=== PATIENT | female | born 1950 | race African-American/Black ===

== ENCOUNTER 2017-07-05 19:25 | Emergency (ER) | payer MEDICARE ==
[2017-07-05 20:00] LABS: ADD MAN DIFF? NO
[2017-07-05 20:04] LABS: BASO % 1 % (0-3); EOS # 0.1 x10^3/uL (0.0-0.7); EOS % 3 % (0-3); HEMATOCRIT 35.7 % (36.0-47.0); LYMPH # 1.7 x10^3/uL (1.0-4.8); LYMPH % 39 % (24-48); MEAN CORPUSCULAR HEMOGLOBIN 30 pg (25-35); MEAN CORPUSCULAR HGB CONC 34 g/dL (31-37); MEAN CORPUSCULAR VOLUME 90 fL (79-100); MONO # 0.4 x10^3/uL (0.0-1.1); MONO % 10 % (0-9); NEUT % 47 % (31-73); PLATELET COUNT 190 x10^3/uL (140-400); RED BLOOD COUNT 3.96 x10^6/uL (3.50-5.40); RED CELL DISTRIBUTION WIDTH 14.6 % (11.5-14.5); WHITE BLOOD COUNT 4.3 x10^3/uL (4.0-11.0)
[2017-07-05 20:13] LABS: BILIRUBIN,URINE NEGATIVE (NEG); CLARITY,URINE CLOUDY; COLOR,URINE YELLOW; GLUCOSE,URINE NEGATIVE (NEG); NITRITE,URINE NEGATIVE (NEG); PROTEIN,URINE NEGATIVE (NEG-TRACE)
[2017-07-05 20:16] LABS: ANION GAP 9 (6-14); BLOOD UREA NITROGEN 16 mg/dL (7-20); CALCIUM 8.8 mg/dL (8.5-10.1); CARBON DIOXIDE 32 mmol/L (21-32); CHLORIDE 106 mmol/L (98-107); CREATININE 1.1 mg/dL (0.6-1.0); GFR 59.8; GLUCOSE 92 mg/dL (70-99); POTASSIUM 3.7 mmol/L (3.5-5.1); SODIUM 147 mmol/L (136-145)
[2017-07-05 20:17] LABS: BACTERIA,URINE 0 /HPF (0-FEW); SQUAMOUS EPITHELIAL CELL,UR OCC /LPF; WBC,URINE 0 /HPF (0-4)
[2017-07-05 20:22] LABS: ALBUMIN 3.3 g/dL (3.4-5.0); ALK PHOS 92 U/L (46-116); ALT (SGPT) 19 U/L (14-59); AST (SGOT) 16 U/L (15-37); DIRECT BILIRUBIN 0.1 mg/dL (0.0-0.2); LIPASE 119 U/L (73-393); TOTAL BILIRUBIN 0.5 mg/dL (0.2-1.0); TOTAL PROTEIN 7.1 g/dL (6.4-8.2)
[2017-07-05 20:24] LABS: TROPONINI < 0.017 ng/mL (0.000-0.055)
[2017-07-05 20:27] LABS: NT-PRO BNP 782 pg/mL (0-124)
== END 2017-07-05 21:51 | disposition home or self-care (01) ==
LOC: ER 19:25
DX: R06.02 Shortness of breath (principal); R60.0 Localized edema; E87.0 Hyperosmolality and hypernatremia; G89.29 Other chronic pain; M06.9 Rheumatoid arthritis, unspecified; M10.9 Gout, unspecified; Z95.0 Presence of cardiac pacemaker
CPT/HCPCS: 36415; 71045; 80048; 80076; 81001; 83605; 83690; 83880; 84484; 85025; 93005; 93970; 99285-25

== ENCOUNTER 2017-08-29 09:39 | Emergency (ER) | payer MEDICARE ==
[2017-08-29 12:01] LABS: ADD MAN DIFF? NO
[2017-08-29 12:05] LABS: BASO % 1 % (0-3); EOS # 0.1 x10^3/uL (0.0-0.7); EOS % 4 % (0-3); HEMATOCRIT 35.9 % (36.0-47.0); HEMOGLOBIN 12.1 g/dL (12.0-15.5); LYMPH # 1.5 x10^3/uL (1.0-4.8); LYMPH % 45 % (24-48); MEAN CORPUSCULAR HEMOGLOBIN 31 pg (25-35); MEAN CORPUSCULAR HGB CONC 34 g/dL (31-37); MEAN CORPUSCULAR VOLUME 91 fL (79-100); MONO # 0.4 x10^3/uL (0.0-1.1); MONO % 11 % (0-9); NEUT # 1.3 x10^3uL (1.8-7.7); NEUT % 41 % (31-73); PLATELET COUNT 209 x10^3/uL (140-400); RED BLOOD COUNT 3.96 x10^6/uL (3.50-5.40); RED CELL DISTRIBUTION WIDTH 15.2 % (11.5-14.5); WHITE BLOOD COUNT 3.3 x10^3/uL (4.0-11.0)
[2017-08-29] MEDS: GABAPENTIN 300 MG CAPSULE. PO (12:09)
[2017-08-29] MEDS: ASPIRIN 325 MG TABLET PO (12:09)
[2017-08-29 12:16] LABS: ANION GAP 1 (6-14); BLOOD UREA NITROGEN 15 mg/dL (7-20); BUN/CREATININE RATIO 15 (6-20); CALCIUM 9.5 mg/dL (8.5-10.1); CARBON DIOXIDE 34 mmol/L (21-32); CHLORIDE 106 mmol/L (98-107); GFR 66.7; GLUCOSE 99 mg/dL (70-99); POTASSIUM 3.4 mmol/L (3.5-5.1); SODIUM 141 mmol/L (136-145)
[2017-08-29 12:22] LABS: ALBUMIN 3.5 g/dL (3.4-5.0); ALBUMIN/GLOBULIN RATIO 0.9 (1.0-1.7); ALK PHOS 78 U/L (46-116); ALT (SGPT) 19 U/L (14-59); AST (SGOT) 14 U/L (15-37); MAGNESIUM 2.1 mg/dL (1.8-2.4); TOTAL BILIRUBIN 1.2 mg/dL (0.2-1.0); TOTAL PROTEIN 7.2 g/dL (6.4-8.2)
[2017-08-29 12:28] LABS: TROPONINI < 0.017 ng/mL (0.000-0.055)
[2017-08-29 12:31] LABS: THYROID STIM HORMONE (TSH) 1.841 uIU/mL (0.358-3.74)
[2017-08-29 12:37] LABS: NT-PRO BNP 694 pg/mL (0-124)
[2017-08-29 12:37] LABS: CKMB MASS < 0.5 ng/mL (0.0-3.6); CREATINE KINASE 90 U/L (26-192)
[2017-08-29 12:56] LABS: BILIRUBIN,URINE NEGATIVE (NEG); CLARITY,URINE CLEAR; COLOR,URINE YELLOW; GLUCOSE,URINE NEGATIVE (NEG); NITRITE,URINE NEGATIVE (NEG); PROTEIN,URINE NEGATIVE (NEG-TRACE); UROBILINOGEN,URINE 0.2 mg/dL (0.2 mg/dL)
[2017-08-29 13:03] LABS: BARBITURATES NEG (NEG); BENZODIAZEPINES NEG (NEG); CANNABINOIDS NEG (NEG); COCAINE NEG (NEG); METHADONE NEG (NEG); OPIATES NEG (NEG); PHENCYCLIDINE NEG (NEG)
[2017-08-29 13:05] LABS: AMPHETAMINE/METHAMPHETAMINE NEG (NEG); ETHANOL, URINE NEG (NEG)
[2017-08-29 13:20] LABS: BACTERIA,URINE FEW /HPF (0-FEW); RBC,URINE 0 /HPF (0-2); SQUAMOUS EPITHELIAL CELL,UR OCC /LPF; WBC,URINE 0 /HPF (0-4)
== END 2017-08-29 14:35 | disposition home or self-care (01) ==
LOC: ER 09:39
DX: R20.2 Paresthesia of skin (principal); M19.90 Unspecified osteoarthritis, unspecified site; G62.9 Polyneuropathy, unspecified; G89.29 Other chronic pain; M10.9 Gout, unspecified; Z95.0 Presence of cardiac pacemaker; Z98.890 Other specified postprocedural states
CPT/HCPCS: 36415; 70450; 71045; 73130; 80053; 80307; 81001; 82553; 83735; 83880; 84443; 84484; 85025; 85610; 93005; 99285-25

== ENCOUNTER 2017-09-06 18:26 | Emergency (ER) | payer MEDICARE ==
[2017-09-06 19:16] LABS: ADD MAN DIFF? NO
[2017-09-06 19:18] LABS: BASO % 1 % (0-3); EOS # 0.1 x10^3/uL (0.0-0.7); EOS % 2 % (0-3); HEMATOCRIT 37.5 % (36.0-47.0); HEMOGLOBIN 12.9 g/dL (12.0-15.5); LYMPH # 1.7 x10^3/uL (1.0-4.8); LYMPH % 44 % (24-48); MEAN CORPUSCULAR HEMOGLOBIN 31 pg (25-35); MEAN CORPUSCULAR HGB CONC 34 g/dL (31-37); MEAN CORPUSCULAR VOLUME 91 fL (79-100); MONO # 0.3 x10^3/uL (0.0-1.1); MONO % 8 % (0-9); NEUT # 1.7 x10^3uL (1.8-7.7); NEUT % 45 % (31-73); PLATELET COUNT 218 x10^3/uL (140-400); RED BLOOD COUNT 4.13 x10^6/uL (3.50-5.40); RED CELL DISTRIBUTION WIDTH 15.2 % (11.5-14.5); WHITE BLOOD COUNT 3.9 x10^3/uL (4.0-11.0)
[2017-09-06 19:29] LABS: ANION GAP 8 (6-14); BLOOD UREA NITROGEN 14 mg/dL (7-20); BUN/CREATININE RATIO 16 (6-20); CALCIUM 9.2 mg/dL (8.5-10.1); CARBON DIOXIDE 29 mmol/L (21-32); CHLORIDE 106 mmol/L (98-107); CREATININE 0.9 mg/dL (0.6-1.0); GFR 75.3; GLUCOSE 105 mg/dL (70-99); POTASSIUM 3.2 mmol/L (3.5-5.1); SODIUM 143 mmol/L (136-145)
[2017-09-06 19:35] LABS: ALBUMIN 3.6 g/dL (3.4-5.0); ALK PHOS 76 U/L (46-116); ALT (SGPT) 18 U/L (14-59); AST (SGOT) 12 U/L (15-37); TOTAL PROTEIN 7.3 g/dL (6.4-8.2)
[2017-09-06 19:37] LABS: TROPONINI < 0.017 ng/mL (0.000-0.055)
[2017-09-06 19:40] LABS: NT-PRO BNP 1111 pg/mL (0-124)
[2017-09-06 20:03] LABS: MAGNESIUM 1.9 mg/dL (1.8-2.4)
[2017-09-06] MEDS: POTASSIUM CHLORIDE 20 MEQ TABLET.ER. PO (20:15)
== END 2017-09-06 21:00 | disposition home or self-care (01) ==
LOC: ER 18:26
DX: R00.2 Palpitations (principal); R07.89 Other chest pain; G89.29 Other chronic pain; R00.0 Tachycardia, unspecified; M10.9 Gout, unspecified; M06.9 Rheumatoid arthritis, unspecified; Z95.810 Presence of automatic (implantable) cardiac defibrillator; Z95.0 Presence of cardiac pacemaker
CPT/HCPCS: 36415; 71045; 80053; 83735; 83880; 84484; 85025; 93005; 99285-25

== ENCOUNTER 2018-06-21 13:14 | Emergency (ER) | payer MEDICARE ==
[~2018-06-21] VITALS: Ht 170.2 cm; Wt 98.9 kg
[~2018-06-21 13:14] MED LIST: ALPR0.5T PO; AMIO200T4 PO; ASPI81TA59 PO; CARV6.2511 PO; CHOL400C PO; CLIN150C14 PO; DICL100G18 TP; FLUT16SP2 NS; FOLI1TAB16 PO; FURO20TA3 PO; GABA300C18 PO; LACT1CAP8 PO; LISI2.5T PO; OMEG1CAP27 PO; POTA25TA4 PO; RANI150C PO; RANI150T2 PO; SENN1TAB62 PO; SIMV10TA3 PO
[2018-06-21 13:29] VITALS: BP 124/67
[2018-06-21] MEDS ORDERED: AMOX1TAB61 PO (14:06)
[2018-06-21] MEDS ORDERED: PRED50TA PO (14:06)
[2018-06-21] MEDS ORDERED: FLUT9.9S NS (14:06)
--- NOTE | 2018-06-21 14:07 | PHYS DOC ---
Past Medical History Past Medical History: Arthritis, Arrhythmia, Other Additional Past Medical Histor: GOUT, CHRONIC PAIN, RHEUMATOID ARTHRITIS ([employer]) Past Surgical History: Pacemaker, Other Additional Past Surgical Histo: defibrillator, hernia repair (HENRY TUTTLE APRN) Alcohol Use: None Drug Use: None (HENRY TUTTLE APRN) Adult General Chief Complaint Chief Complaint: MULTIPLE COMPLAINTS HPI HPI Patient is a 67 year old female who presents with complaints. The patient has had congestion for greater than 2 weeks. She states that she is now having facial pain and thick drainage. She states that it hits her throat at night making her cough. She also has inflammation to her right hand and right knee. The patient is positive for rheumatoid arthritis. She has been having symptoms of dry mouth as well as dry eyes. (HENRY TUTTLE APRN) Review of Systems Review of Systems Constitutional: Denies fever or chills [] Eyes: Denies change in visual acuity, redness, or eye pain [] HENT: See history of present illness Respiratory: Denies cough or shortness of breath [] Cardiovascular: No additional information not addressed in HPI [] GI: Denies abdominal pain, nausea, vomiting, bloody stools or diarrhea [] : Denies dysuria or hematuria [] Musculoskeletal: See history of present illness Integument: Denies rash or skin lesions [] Neurologic: Denies headache, focal weakness or sensory changes [] Endocrine: Denies polyuria or polydipsia [] All other systems were reviewed and found to be within normal limits, except as documented in this note. (HENRY TUTTLE APRN) Allergies Allergies Allergies Coded Allergies Type Severity Reaction Last Updated Verified No Known Drug Allergies 07/06/14 No (DMITRI KYLE MD) Physical Exam Physical Exam Constitutional: Well developed, well nourished, no acute distress, non-toxic appearance. [] HENT: Normocephalic, atraumatic, bilateral external ears normal, patient has sinus drainage noted to the back of her throat, the patient has maxillary tenderness with palpation Eyes: PERRLA, EOMI, conjunctiva normal, no discharge. [] Neck: Normal range of motion, no tenderness, supple, no stridor. [] Cardiovascular:Heart rate regular rhythm, no murmur [] Lungs & Thorax: Bilateral breath sounds clear to auscultation [] Abdomen: Bowel sounds normal, soft, no tenderness, no masses, no pulsatile masses. [] Skin: Warm, dry, no erythema, no rash. [] Back: No tenderness, no CVA tenderness. [] Extremities: tenderness and edema to right knee and right third digit with some inflammation noted, no cyanosis, no clubbing, ROM intact Neurologic: Alert and oriented X 3, normal motor function, normal sensory function, no focal deficits noted. [] Psychologic: Affect normal, judgement normal, mood normal. [] (HENRY TUTTLE APRN) Current Patient Data Vital Signs Vital Signs Date Time Temp Pulse Resp B/P (MAP) Pulse Ox O2 Delivery O2 Flow Rate FiO2 06/21/18 13:29 97.5 77 16 124/67 (86) 100 Room Air 97.5 (DMITRI KYLE MD) EKG EKG [] (HENRY TUTTLE APRN) Radiology/Procedures Radiology/Procedures [] (HENRY TUTTLE APRN) Course & Med Decision Making Course & Med Decision Making Pertinent Labs and Imaging studies reviewed. (See chart for details) The patient is to take the antibiotics as directed and use the Flonase for symptom relief. I did res counselor her to sip on water throughout the day as well as use lozenges to keep her mouth moist. She can also use pgao-ybb-gdlhjis drops such as Restasis for dry eyes. I strongly encouraged her to see a pbx repairer for evaluation of Sjogren syndrome. (HENRY TUTTLE APRN) Course & Med Decision Making Staff Physician Addendum: I was working in the ER during the course of this patient's visit. I was available for consultation as needed, but I was not directly involved in the care of this patient. (DMITRI KYLE MD) Dragon Disclaimer Dragon Disclaimer This electronic medical record was generated, in whole or in part, using a voice recognition dictation system. (HENRY TUTTLE APRN) Departure Departure Impression: Primary Impression: Sinusitis Disposition: 01 HOME, SELF-CARE Condition: STABLE Referrals: UNKNOWN PCP NAME (PCP) Patient Instructions: Sinusitis Additional Instructions: Take medications as directed. Follow-up with Dr. Lombardi in 4 days if not improving or return to the emergency department if worsening. Scripts Prednisone (PREDNISONE) 50 Mg Tablet 1 TAB PO DAILY for inflammation, #5 TAB Prov: HENRY TUTTLE APRN 06/21/18 Fluticasone Propionate (Flonase Allergy Relief) 9.9 Ml [place].susp 2 SPRAYS NS DAILY for sinusitis, #1 BOTTLE Prov: HENRY TUTTLE APRN 06/21/18 Amoxicillin/Potassium Clav (AUGMENTIN 875-125 TABLET) 1 Each Tablet 1 TAB PO BID for sinusitis, #20 TAB Prov: HENRY TUTTLE APRN 06/21/18 HENRY TUTTLE APRN Jun 21, 2018 14:07 DMITRI KYLE MD Jun 22, 2018 10:22
== END 2018-06-21 14:20 | disposition home or self-care (01) ==
LOC: ER 13:14
DX: J32.9 Chronic sinusitis, unspecified (principal); G89.29 Other chronic pain; M10.9 Gout, unspecified; Z95.810 Presence of automatic (implantable) cardiac defibrillator
CPT/HCPCS: 99283

== ENCOUNTER 2018-07-22 07:24 | Emergency (ER) | payer MEDICARE ==
[~2018-07-22] VITALS: Ht 170.2 cm; Wt 98.9 kg
[~2018-07-22 07:24] MED LIST changes: +AMOX1TAB61 PO; +FLUT9.9S NS; +PRED50TA PO
[2018-07-22 07:57] LABS: BASO % 1 % (0-3); EOS # 0.1 x10^3/uL (0.0-0.7); EOS % 2 % (0-3); HEMATOCRIT 37.8 % (36.0-47.0); HEMOGLOBIN 12.3 g/dL (12.0-15.5); LYMPH # 1.4 x10^3/uL (1.0-4.8); LYMPH % 41 % (24-48); MEAN CORPUSCULAR HEMOGLOBIN 30 pg (25-35); MEAN CORPUSCULAR HGB CONC 33 g/dL (31-37); MEAN CORPUSCULAR VOLUME 93 fL (79-100); MONO # 0.3 x10^3/uL (0.0-1.1); MONO % 9 % (0-9); NEUT # 1.5 x10^3uL (1.8-7.7); NEUT % 46 % (31-73); PLATELET COUNT 199 x10^3/uL (140-400); RED BLOOD COUNT 4.08 x10^6/uL (3.50-5.40); RED CELL DISTRIBUTION WIDTH 15.6 % (11.5-14.5); WHITE BLOOD COUNT 3.3 x10^3/uL (4.0-11.0)
[2018-07-22 08:09] LABS: CALCIUM 8.5 mg/dL (8.5-10.1); CREATININE 0.9 mg/dL (0.6-1.0); GFR 75.1; POTASSIUM 3.4 mmol/L (3.5-5.1)
[2018-07-22 08:15] LABS: ALBUMIN 3.2 g/dL (3.4-5.0); ALBUMIN/GLOBULIN RATIO 0.8 (1.0-1.7); TOTAL BILIRUBIN 0.6 mg/dL (0.2-1.0); TOTAL PROTEIN 7.1 g/dL (6.4-8.2)
--- NOTE | 2018-07-22 08:20 | RAD ---
CHEST AP ONLY Clinical Indication: CHEST PAIN AND WHEEZING X TODAY Comparison: AP chest September 06, 2017. Findings: Stable left chest dual-chamber ICD. Atherosclerotic thoracic aorta. Mild cardiomegaly is unchanged. No obvious pulmonary vascular congestion. Lungs are clear. There is no pneumothorax. No pleural effusion is appreciated. No acute bone abnormality. IMPRESSION: 1. No acute pulmonary process. 2. Stable cardiomegaly. Electronically signed by: Marcelo Wilson MD (07/22/2018 8:17 AM) [id number]
--- NOTE | 2018-07-22 09:13 | EKG ---
[facility] [address] [place] [address] Test Date: 2018-07-22 Test Time: 07:39:17 Pat Name: CY HENDERSON Department: Room: Gender: F Engraver Picture: : 1950 Requested By: SANKET YEN Order Number: [id number] Reading MD: Toni Levy MD Measurements Intervals [place] Rate: 75 P: 48 NH: 212 QRS: -40 QRSD: 122 T: 53 QT: 448 QTc: 503 Interpretive Statements SINUS RHYTHM LAD CONSIDER PRIOR INFERIOR INFARCT IVCD POOR R-WAVE PROGRESSION Electronically Signed On 07-22-2018 11:12:02 CDT by Toni Levy MD
[2018-07-22 09:24] LABS: BILIRUBIN,URINE NEGATIVE (NEG); CLARITY,URINE CLEAR; COLOR,URINE YELLOW; NITRITE,URINE NEGATIVE (NEG); PH,URINE 6.5; PROTEIN,URINE NEGATIVE (NEG-TRACE); UROBILINOGEN,URINE 0.2 mg/dL (0.2 mg/dL)
[2018-07-22 09:29] LABS: BACTERIA,URINE FEW /HPF (0-FEW); SQUAMOUS EPITHELIAL CELL,UR MANY /LPF
--- NOTE | 2018-07-22 09:47 | PHYS DOC ---
Past Medical History Past Medical History: Arthritis, Arrhythmia, Other Additional Past Medical Histor: GOUT, CHRONIC PAIN, RHEUMATOID ARTHRITIS Past Surgical History: Pacemaker, Other Additional Past Surgical Histo: defibrillator, hernia repair Alcohol Use: None Drug Use: None Adult General Chief Complaint Chief Complaint: CHEST PAIN [facility] HPI [53-year-old female with a history of nonischemic cardiomyopathy with an AICD presents with some pain in her back. She also has some pain in her right shoulder. 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 She seen her primary care physician for this and been given Percocet. She states the pain seemed a little worse today. She denies any fever chills or sweats. She has not had any significant shortness of breath or dyspnea on exertion. She's not had any unilateral leg swelling. She states the pain it's in her back does occasionally radiate to her shoulders. She also states that this pain is much worse with any movement] Review of Systems Review of Systems Constitutional: Denies fever or chills [] Eyes: Denies change in visual acuity, redness, or eye pain [] HENT: Denies nasal congestion or sore throat [] Respiratory: Denies cough or shortness of breath [] Cardiovascular: No additional information not addressed in HPI [] GI: Denies abdominal pain, nausea, vomiting, bloody stools or diarrhea [] : Denies dysuria or hematuria [] Musculoskeletal: Denies back pain or joint pain [] Integument: Denies rash or skin lesions [] Neurologic: Denies headache, focal weakness or sensory changes [] Endocrine: Denies polyuria or polydipsia [] All other systems were reviewed and found to be within normal limits, except as documented in this note. Allergies Allergies Allergies Coded Allergies Type Severity Reaction Last Updated Verified No Known Drug Allergies 07/06/14 No Physical Exam Physical Exam Constitutional: Well developed, well nourished, no acute distress, non-toxic appearance. [] HENT: Normocephalic, atraumatic, bilateral external ears normal, oropharynx moist, no oral exudates, nose normal. [] Eyes: PERRLA, EOMI, conjunctiva normal, no discharge. [] Neck: Normal range of motion, no tenderness, supple, no stridor. [] Cardiovascular:Heart rate regular rhythm, no murmur [] Lungs & Thorax: Bilateral breath sounds clear to auscultation [] Abdomen: Bowel sounds normal, soft, no tenderness, no masses, no pulsatile masses. [] Skin: Warm, dry, no erythema, no rash. [] Back: No tenderness, no CVA tenderness. [] Extremities: No tenderness, no cyanosis, no clubbing, ROM intact, no edema. [] Neurologic: Alert and oriented X 3, normal motor function, normal sensory function, no focal deficits noted. [] Psychologic: Affect normal, judgement normal, mood normal. [] Current Patient Data Vital Signs Vital Signs Date Time Temp Pulse Resp B/P (MAP) Pulse Ox O2 Delivery O2 Flow Rate FiO2 07/22/18 07:35 98.2 73 20 110/65 (80) 96 Room Air 98.2 Lab Values Laboratory Tests Test 07/22/18 07:45 07/22/18 09:11 White Blood Count 3.3 x10^3/uL (4.0-11.0) L Red Blood Count 4.08 x10^6/uL (3.50-5.40) Hemoglobin 12.3 g/dL (12.0-15.5) Hematocrit 37.8 % (36.0-47.0) Mean Corpuscular Volume 93 fL (79-100) Mean Corpuscular Hemoglobin 30 pg (25-35) Mean Corpuscular Hemoglobin Concent 33 g/dL (31-37) Red Cell Distribution Width 15.6 % (11.5-14.5) H Platelet Count 199 x10^3/uL (140-400) Neutrophils (%) (Auto) 46 % (31-73) Lymphocytes (%) (Auto) 41 % (24-48) Monocytes (%) (Auto) 9 % (0-9) Eosinophils (%) (Auto) 2 % (0-3) Basophils (%) (Auto) 1 % (0-3) Neutrophils # (Auto) 1.5 x10^3uL (1.8-7.7) L Lymphocytes # (Auto) 1.4 x10^3/uL (1.0-4.8) Monocytes # (Auto) 0.3 x10^3/uL (0.0-1.1) Eosinophils # (Auto) 0.1 x10^3/uL (0.0-0.7) Basophils # (Auto) 0.0 x10^3/uL (0.0-0.2) Sodium Level 144 mmol/L (136-145) Potassium Level 3.4 mmol/L (3.5-5.1) L Chloride Level 104 mmol/L (98-107) Carbon Dioxide Level 33 mmol/L (21-32) H Anion Gap 7 (6-14) Blood Urea Nitrogen 15 mg/dL (7-20) Creatinine 0.9 mg/dL (0.6-1.0) Estimated GFR (Cockcroft-Gault) 75.1 BUN/Creatinine Ratio 17 (6-20) Glucose Level 96 mg/dL (70-99) Calcium Level 8.5 mg/dL (8.5-10.1) Total Bilirubin 0.6 mg/dL (0.2-1.0) Aspartate Amino Transferase (AST) 15 U/L (15-37) Alanine Aminotransferase (ALT) 22 U/L (14-59) Alkaline Phosphatase 78 U/L (46-116) Troponin I Quantitative < 0.017 ng/mL (0.000-0.055) FL-Ioh-R-Type Natriuretic Peptide 721 pg/mL (0-124) H Total Protein 7.1 g/dL (6.4-8.2) Albumin 3.2 g/dL (3.4-5.0) L Albumin/Globulin Ratio 0.8 (1.0-1.7) L Urine Collection Type Unknown Urine Color Yellow Urine Clarity Clear Urine pH 6.5 Urine Specific [place] 1.020 Urine Protein Negative mg/dL (NEG-TRACE) Urine Glucose (UA) Negative mg/dL (NEG) Urine Ketones (Stick) Negative mg/dL (NEG) Urine Blood Small (NEG) Urine Nitrite Negative (NEG) Urine Bilirubin Negative (NEG) Urine Urobilinogen Dipstick 0.2 mg/dL (0.2 mg/dL) Urine Leukocyte Esterase Negative (NEG) Urine RBC 3-5 /HPF (0-2) Urine WBC 1-4 /HPF (0-4) Urine Squamous Epithelial Cells Many /LPF Urine Bacteria Few /HPF (0-FEW) Laboratory Tests 07/22/18 07:45 Laboratory Tests 07/22/18 07:45 EKG EKG [EKG: Sinus rhythm left bundle from previous rate 75] Radiology/Procedures Radiology/Procedures [] Impressions: REASON: chest pain PROCEDURE: CHEST AP ONLY CHEST AP ONLY Clinical Indication: CHEST PAIN AND WHEEZING X TODAY Comparison: AP chest September 06, 2017. Findings: Stable left chest dual-chamber ICD. Atherosclerotic thoracic aorta. Mild cardiomegaly is unchanged. No obvious pulmonary vascular congestion. Lungs are clear. There is no pneumothorax. No pleural effusion is appreciated. No acute bone abnormality. IMPRESSION: 1. No acute pulmonary process. 2. Stable cardiomegaly. Course & Med Decision Making Course & Med Decision Making Pertinent Labs and Imaging studies reviewed. (See chart for details) [ED course: Evaluation reveals a 67-year-old female who presents with some atypical chest discomfort. The pain originated in her back radiating to her right shoulder. Was exacerbated by movement not so much by deep breath. Her initial cardiac workup was unrevealing. I offered the patient admission for observation and rule out in echocardiogram and stress test however the patient was adamant that she did not want to stay. She states she understands that she is at risk to have a heart attack and even if she doesn't stay. She states she will follow with her primary care physician this week and get all of her testing done as an outpatient. Patient also adamantly refused any pain medicine while in the department stating she has Percocet at home that she'll take if she needs it.] Dragon Disclaimer Dragon Disclaimer This electronic medical record was generated, in whole or in part, using a voice recognition dictation system. Departure Departure Impression: Primary Impression: Chest wall pain Disposition: HOME, SELF-CARE Condition: STABLE Referrals: Brendan PORTER MD (PCP) Patient Instructions: Back Pain, Adult, Chest Pain (Nonspecific), Chest Wall Pain Additional Instructions: Follow with Dr. Porter in the next 24 hours for recheck. Return immediately to the emergency department with any new or concerning symptoms SANKET YEN DO Jul 22, 2018 09:47
[2018-07-22 10:00] VITALS: BP 119/65
== END 2018-07-22 10:05 | disposition home or self-care (01) ==
LOC: ER 07:24
DX: R07.89 Other chest pain (principal); M25.511 Pain in right shoulder; M54.89 Other dorsalgia; R06.2 Wheezing; G89.29 Other chronic pain; M10.9 Gout, unspecified; Z98.890 Other specified postprocedural states; Z95.810 Presence of automatic (implantable) cardiac defibrillator
CPT/HCPCS: 36415; 71045; 80053; 81001; 83880; 84484; 85025; 93005; 99284-25

== ENCOUNTER 2019-06-09 12:38 | Emergency (ER) | payer MEDICARE ==
[~2019-06-09] VITALS: Ht 170.2 cm; Wt 97.2 kg
[~2019-06-09 12:38] MED LIST changes: +ALBU2.5V8 INH; +DULO60CA6 PO; +FURO40TA4 PO; +OMEG1CAP6 PO; +OXYC1TAB22 PO; +POTA20TA4 PO; +SACU1TAB7 PO; +SIMV10TA15 PO; -SIMV10TA3 PO
[2019-06-09 12:51] VITALS: BP 119/73
[2019-06-09] MEDS: LIDOCAINE 2% VISCOUS 15 ML SOLUTION. SWSW STA (12:52)
--- NOTE | 2019-06-09 12:55 | PHYS DOC ---
Past Medical History Past Medical History: Arthritis, Arrhythmia, Other Additional Past Medical Histor: GOUT, CHRONIC PAIN, RHEUMATOID ARTHRITIS Past Surgical History: Pacemaker, Other Additional Past Surgical Histo: defibrillator, hernia repair Smoking Status: Never Smoker Alcohol Use: None Drug Use: None Adult General Chief Complaint Chief Complaint: FOREIGNBODY EAR HPI HPI Patient is a 68 year old female who presents with right ear pain for last 2 days. The patient states she's been visiting in [place] and states that she was staying at a friend's house and now she thinks she has a bug in her ear. She rates her pain as 10 out of 10 in severity and sharp. Denies any other symptoms. Complete ROS were reviewed and found to be within normal limits, except as documented in the HPI Current Medications Current Medications Current Medications Medications (Trade) Dose Ordered Sig/Ovi Start Time Stop Time Status Last Admin Dose Admin Lidocaine HCl (Viscous Lidocaine) 15 ml 1X STAT 06/09/19 12:52 06/09/19 12:56 DC Allergies Allergies Allergies Coded Allergies Type Severity Reaction Last Updated Verified No Known Drug Allergies 07/06/14 No Physical Exam Physical Exam Constitutional: Well developed, well nourished, no acute distress, non-toxic appearance. [] HENT: Normocephalic, atraumatic, bilateral external ears normal, Lennon noted in R ear. oropharynx moist, no oral exudates, nose normal. Eyes: PERRLA, EOMI, conjunctiva normal, no discharge. [] Neck: Normal range of motion, no tenderness, supple, no stridor. [] Cardiovascular:Heart rate regular rhythm, no murmur [] Lungs & Thorax: Bilateral breath sounds clear to auscultation [] Skin: Warm, dry, no erythema, no rash. [] Neurologic: Alert and oriented X 3, normal motor function, normal sensory function, no focal deficits noted. [] Psychologic: Affect normal, judgement normal, mood normal. [] Current Patient Data Vital Signs Vital Signs Date Time Temp Pulse Resp B/P (MAP) Pulse Ox O2 Delivery O2 Flow Rate FiO2 06/09/19 12:51 97.4 82 18 119/73 (88) 97 Room Air 97.4 EKG EKG [] Radiology/Procedures Radiology/Procedures [] Course & Med Decision Making Course & Med Decision Making Pertinent Labs and Imaging studies reviewed. (See chart for details) Will have nursing irrigate the ear. Will order lidocaine. Nursing removed lennon from ear with irrigation. Errythema where Lennon was. Will place on Amoxicillin. Dragon Disclaimer Dragon Disclaimer This electronic medical record was generated, in whole or in part, using a voice recognition dictation system. Departure Departure Impression: Primary Impression: Foreign body in ear Disposition: 01 HOME, SELF-CARE Condition: STABLE Referrals: Brendan PORTER MD (PCP) Patient Instructions: Ear Foreign Body Additional Instructions: Thank you for visiting [facility]. We appreciate you trusting us with your care. If any additional problems come up don't hesitate to return to visit us. Please follow up with your primary care provider so they can plan additional care if needed and know about the problem that you had. If symptoms worsen come back to the Emergency Department. Any concerning symptoms that start such as chest pain, shortness of air, weakness or numbness on one side of the body, running high fevers or any other concerning symptoms return to the ER. You have been prescribed an antibiotic today to help fight your infection. Please take all of the antibiotic as directed. If after 48 hours the infection is not improving, please return for more care. If the infection worsens, return to ER for additional care. Scripts Amoxicillin (AMOXICILLIN) 875 Mg Tablet 1 TAB PO BID, #14 TAB Prov: TONA SMITH APRN 06/09/19 Problem Qualifiers Primary Impression: Foreign body in ear Encounter type: initial encounter Laterality: right Qualified Codes: T16.1XXA - Foreign body in right ear, initial encounter TONA SMITH APRN Jun 09, 2019 12:55
[2019-06-09] MEDS ORDERED: AMOX875T PO (13:34)
== END 2019-06-09 13:48 | disposition home or self-care (01) ==
LOC: ER 12:38
DX: T16.1XXA Foreign body in right ear, initial encounter (principal); M10.9 Gout, unspecified; G89.29 Other chronic pain; Z95.810 Presence of automatic (implantable) cardiac defibrillator; X58.XXXA Exposure to other specified factors, initial encounter; Y93.89 Activity, other specified; Y92.89 Other specified places as the place of occurrence of the external cause; Y99.8 Other external cause status
CPT/HCPCS: 99284

== ENCOUNTER 2019-12-16 20:59 | Inpatient (IN) | payer MEDICARE ==
[~2019-12-16] VITALS: Ht 170.2 cm; Wt 98.3 kg
[~2019-12-16 20:59] MED LIST changes: +AMOX875T PO; -DICL100G18 TP; +DICL100G54 TP
[2019-12-16 21:41] LABS: BASO # 0.1 x10^3/uL (0.0-0.2); BASO % 1 % (0-3); EOS % 1 % (0-3); HEMATOCRIT 35.7 % (36.0-47.0); LYMPH % 24 % (24-48); MEAN CORPUSCULAR HEMOGLOBIN 31 pg (25-35); MEAN CORPUSCULAR HGB CONC 34 g/dL (31-37); MEAN CORPUSCULAR VOLUME 93 fL (79-100); MONO # 0.4 x10^3/uL (0.0-1.1); MONO % 8 % (0-9); NEUT # 2.9 x10^3/uL (1.8-7.7); NEUT % 66 % (31-73); PLATELET COUNT 183 x10^3/uL (140-400); RED BLOOD COUNT 3.85 x10^6/uL (3.50-5.40); RED CELL DISTRIBUTION WIDTH 15.8 % (11.5-14.5); WHITE BLOOD COUNT 4.3 x10^3/uL (4.0-11.0)
--- NOTE | 2019-12-16 21:42 | PHYS DOC ---
Past Medical History Past Medical History: Arthritis, Arrhythmia, Other Additional Past Medical Histor: GOUT, CHRONIC PAIN, RHEUMATOID ARTHRITIS Past Surgical History: Pacemaker, Other Additional Past Surgical Histo: defibrillator, hernia repair Smoking Status: Never Smoker Alcohol Use: None Drug Use: None General Adult EDM: Chief Complaint: MULTIPLE COMPLAINTS HPI: HPI: Patient is a 69 year old female who presents with headache, cough, shortness of breath for last 3 days. She states she has a history of asthma and has a breathing machine at home and she has been doing her breathing treatments every 4 hours and it does help. She denies fever, nausea, abdominal pain, diarrhea, dizziness, syncope, vision changes, numbness or tingling, vomiting, focal weakness, dysuria. Patient currently states that she has no pain at this time but she still short of breath. She denies any current chest pain. She has a history of arthritis, arrhythmia, gout, chronic pain, defibrillator, pacemaker. Review of Systems: Review of Systems: Constitutional: Denies fever or chills. [] Eyes: Denies change in visual acuity. [] HENT: nasal congestion or sore throat. [] Respiratory: cough or shortness of breath. [] Cardiovascular: Denies chest pain or edema. [] GI: Denies abdominal pain, nausea, vomiting, bloody stools or diarrhea. [] : Denies dysuria. [] Musculoskeletal: Denies back pain or joint pain. [] Integument: Denies rash. [] Neurologic: headache, denies focal weakness or sensory changes. [] Endocrine: Denies polyuria or polydipsia. [] Lymphatic: Denies swollen glands. [] Psychiatric: Denies depression or anxiety. [] Heart Score: Risk Factors: Risk Factors: DM, Current or recent (<one month) smoker, HTN, HLP, family history of CAD, obesity. Risk Scores: Score 0 - 3: 2.5% MACE over next 6 weeks - Discharge Home Score 4 - 6: 20.3% MACE over next 6 weeks - Admit for Clinical Observation Score 7 - 10: 72.7% MACE over next 6 weeks - Early Invasive Strategies Current Medications: Current Medications Medications (Trade) Dose Ordered Sig/Ovi Start Time Stop Time Status Last Admin Dose Admin Albuterol Sulfate (Ventolin Neb Soln) 2.5 mg 1X ONCE 8/18/20 22:00 12/16/19 22:01 Methylprednisolone Sodium Succinate (SOLU-Medrol 125MG VIAL) 125 mg 1X ONCE 12/16/19 22:00 12/16/19 22:01 Allergies: Allergies: Allergies Coded Allergies Type Severity Reaction Last Updated Verified No Known Drug Allergies 07/06/14 No Physical Exam: PE: Constitutional: Well developed, well nourished, no acute distress, non-toxic appearance. [] HENT: Normocephalic, atraumatic, bilateral external ears normal, oropharynx moist, no oral exudates, nose normal. [] Eyes: PERRLA, EOMI, conjunctiva normal, no discharge. [] Neck: Normal range of motion, no tenderness, supple, no stridor. [] Cardiovascular:Heart rate regular rhythm, no murmur [] Lungs & Thorax: Bilateral upper breath sounds clear and lower diminished to auscultation [] Abdomen: Bowel sounds normal, soft, no tenderness, no masses, no pulsatile masses. [] Skin: Warm, dry, no erythema, no rash. [] Back: No tenderness, no CVA tenderness. [] Extremities: No tenderness, no cyanosis, no clubbing, ROM intact, lateral lower 3+ edema. [] Neurologic: Alert and oriented X 3, normal motor function, normal sensory function, no focal deficits noted. [] Psychologic: Affect normal, judgement normal, mood normal. [] EKG: EKand read by Dr Chi as Sinus Rhythm and no STEMI[] Radiology/Procedures: Radiology/Procedures: [] Course & Med Decision Making: Course & Med Decision Making Pertinent Labs and Imaging studies reviewed. (See chart for details) COVID-19 CRITERIA: The patient was evaluated during the global COVID-19 pandemic, and that diagnosis was suspected/considered upon their initial presentation. Their evaluation, treatment and testing was consistent with current guidelines for patients who present with complaints or symptoms that may be related to COVID-19. See HPI. Alert and oriented x4. Patient is able to ambulate to the bed from her wheelchair. Abdomen is soft and nontender. Skin pink warm and dry. Lungs are clear in upper lobes bilaterally and diminished in lower lobes bilaterally. Speaks in full clear sentences. Patient has bilateral lower leg 2+ edema. Patient states her throat has been also hurting. Her throat is reddened but there is no exudates or swelling. Patient states she has had a dry cough. She states she has had nasal congestion of which she has been using Flonase nasal spray. Patients BNP is elevated. Patient remains a PUI. Dr Chi read xray as enlarged heart but no obvious pneumonia or fluid. A old xray could not be found to compare. Patient to be admitted for Shortness of breath and PUI. [] Dragon Disclaimer: Dragon Disclaimer: This electronic medical record was generated, in whole or in part, using a voice recognition dictation system. COVID-19 Patient Risks: Age 65 or older: Yes Sign of co-morbidity: Yes Exp to person + for COVID: No Exp to PUI: No Travel from affected area: No Lower respiratory symptoms: Yes Fever: No Other: No PPE Use: Full PPE with N95 mask or PAPR: Yes Departure Departure Impression: Primary Impression: Shortness of breath Additional Impression: Person under investigation for COVID-19 Disposition: ADMITTED INPATIENT Admitting Physician: JYOTI Condition: STABLE Referrals: Brendan PORTER MD (PCP) Justicifation of Admission Dx: Justifications for Admission: Justification of Admission Dx: Yes Comments: SHORTNESS OF BREATH STEVE SANTOS ELECTROLOGIST Dec 16, 2019 21:42
[2019-12-16 21:52] LABS: CALCIUM 8.8 mg/dL (8.5-10.1); GFR 66.1; POTASSIUM 4.4 mmol/L (3.5-5.1)
[2019-12-16 21:57] LABS: ALBUMIN 3.4 g/dL (3.4-5.0); ALBUMIN/GLOBULIN RATIO 1.1 (1.0-1.7); TOTAL PROTEIN 6.5 g/dL (6.4-8.2)
[2019-12-16] MEDS ORDERED: ALBUTEROL SULFATE 2.5 MG/3 ML NEBU. NEB ONE (22:00)
[2019-12-16] MEDS ORDERED: methylPREDNISolone SOD SUCC PF 125 MG/2 ML VIAL. IV ONE (22:00)
[2019-12-16 22:10] LABS: BILIRUBIN,URINE NEGATIVE (NEG); CLARITY,URINE CLEAR; COLOR,URINE YELLOW; NITRITE,URINE NEGATIVE (NEG); PH,URINE 8.5 (<5.0-8.0); PROTEIN,URINE 30 mg/dL (NEG-TRACE)
[2019-12-16 22:14] LABS: BACTERIA,URINE 0 /HPF (0-FEW); SQUAMOUS EPITHELIAL CELL,UR MOD /LPF
[2019-12-16] MEDS ORDERED: ONDANSETRON PF 4 MG/2 ML VIAL. IV PRN (23:30)
[2019-12-17] VITALS (7 sets, daily range): BP systolic 115–142; BP diastolic 58–77
--- NOTE | 2019-12-17 00:08 | RAD ---
AP portable chest radiograph 12/16/2019 Clinical History: Shortness of breath and cough. An AP erect portable digital radiograph of the chest was obtained. Comparison study is dated 11/08/2018. A pacemaker is unchanged position. The cardiac silhouette is mild to moderately enlarged. Atherosclerotic calcification thoracic aorta is seen. The thoracic aorta is mildly tortuous. No acute pulmonary infiltrate is seen. No pneumothorax or pleural effusion is noted. Degenerative changes are seen involving the thoracic spine and both shoulders. IMPRESSION: Mild to moderate cardiomegaly. No acute pulmonary infiltrate is seen. Electronically signed by: Marcello Weems MD (12/17/2019 12:05 AM) [id number]
--- NOTE | 2019-12-17 07:51 | NUR ---
A 69 Y.O FEMALE ADMITTED WITH SHORT OF BREATH, ORIENTED TO UNIT, STAFF, EXPLAINED POC. ADMISSION PACKET GIVEN. VSS, CALL LIGHT IN PLACE WILL CONT TO MONITOR PT SAFETY AND STATUS. PMRN
--- NOTE | 2019-12-17 07:56 | PDOC1 ---
History and Physical Date of Admission Date of Admission DATE: 12/17/19 TIME: 07:48 Identification/Chief Complaint Chief Complaint Shortness of breath Source Source: Patient History of Present Illness History of Present Illness Ms Funez is a 69 year old female w/ PMHx Arthritis, Arrhythmia, GOUT, CHRONIC PAIN, RHEUMATOID ARTHRITIS, reduced EF CHF with EF 15-20% s/p Pacemaker, defibrillator who presents with headache, cough, shortness of breath for last 3 days. She notes worsening LE edema and weight gain. Initially required 2L NCO2 to maintain O2 saturations > 88% in ED. After dosing with IV lasix she did feel improved in the ED. She states she has a history of asthma and has a breathing machine at home and she has been doing her breathing treatments every 4 hours and it does help. She denies fever, nausea, abdominal pain, diarrhea, dizziness, syncope, vision changes, numbness or tingling, vomiting, focal weakness, dysuria. Patient currently states that she has no pain at this time but she still short of breath but much better than when she first came into the hospital. She is currently off of oxygen and on room air. The patient's chest x-ray was reviewed and was consistent with congestive heart failure. She has a cough, which has been nonproductive. No fever, no chills. No obvious COVID exposures. No chest pains. She has been stressed out in regards to family dynamics and has lost her car keys that maybe she has thrown it in the trash. Yesterday she started feeling SOA and it got worse at the end of the day despite use of her breathing treatments. She relates she drinks much more water and Sprite at times and has been eating salty and fried foods recently. She does have some PND but notes she was tested negative for SHELTON. Labs with BNP 5080, troponin 0, bilirubin 2, NA 142, K4.4, BUN 15, CR 1. Admitted for further care. Past Medical History Cardiovascular: CHF, HTN, Hyperlipidemia, Other GI: Constipation Musculoskeletal: Osteoarthritis Rheumatologic: No pertinent hx Infectious disease: No pertinent hx Renal/: No pertinent hx Endocrine: No pertinent hx Past Surgical History Past Surgical History: Pacemaker, Hernia Repair, Other Family History Family History: Coronary Artery Disease Social History Smoke: No ALCOHOL: none Drugs: None Current Problem List Problem List Problems Medical Problems: (1) Person under investigation for COVID-19 Status: Acute (2) Shortness of breath Status: Acute Current Medications Current Medications Current Medications Albuterol Sulfate (Ventolin Neb Soln) 2.5 mg 1X ONCE NEB Last administered on 12/16/19at 22:02; Start 12/16/19 at 22:00; Stop 12/16/19 at 22:01; Status DC Methylprednisolone Sodium Succinate (SOLU-Medrol 125MG VIAL) 125 mg 1X ONCE IV Last administered on 12/16/19at 21:56; Start 12/16/19 at 22:00; Stop 12/16/19 at 22:01; Status DC Ondansetron HCl (Zofran) 4 mg PRN Q8HRS PRN IV NAUSEA/VOMITING 1ST CHOICE; Start 12/16/19 at 23:30; Stop 12/17/19 at 23:29 Albuterol/ Ipratropium (Duoneb) 3 ml RTQID NEB ; Start 12/17/19 at 08:00; Stop 12/18/19 at 07:59 Active Scripts Active Amoxicillin 875 Mg Tablet 1 Tab PO BID Furosemide 40 Mg Tablet 1 Tab PO DAILY Cymbalta (Duloxetine Hcl) 60 Mg Capsule.dr 1 Cap PO DAILY 30 Days Percocet 10-325 Mg Tablet (Oxycodone/Acetaminophen) 1 Each Tablet 1 Tab PO PRN Q6HRS PRN 30 Days Proair Hfa Inhaler (Albuterol Sulfate) 8.5 Gm Hfa.aer.ad 2 Puff INH PRN Q6HRS PRN 30 Days Entresto 49 mg-51 mg Tablet (Sacubitril/Valsartan) 1 Each Tablet 1 Each PO BID 30 Days Xanax (Alprazolam) 0.5 Mg Tablet 0.5 Mg PO PRN Q6HRS PRN Reported Potassium Chloride (Potassium Chloride) 20 Meq Tablet.er 20 Meq PO DAILY Fish Oil 1,000 Mg Capsule ([place]-3 Fatty Acids/Fish Oil) 1 Each Capsule 1 Each PO DAILY Simvastatin 10 Mg Tablet 1 Tab PO QHS Amiodarone Hcl 200 Mg Tablet 1 Tab PO DAILY Ranitidine Hcl 150 Mg Capsule 150 Mg PO BID Vitamin D3 (Cholecalciferol (Vitamin D3)) 400 Unit Capsule 400 Unit PO Children's Aspirin (Aspirin) 81 Mg Tab.chew 81 Mg PO DAILY Carvedilol (Carvedilol) 6.25 Mg Tablet 6.25 Mg PO BID Allergies Allergies: Coded Allergies: No Known Drug Allergies (Unverified , 07/06/14) ROS General: YES: Fatigue, Malaise; No: Chills, Night Sweats, Appetite, Other PSYCHOLOGICAL ROS: No: Anxiety, Behavioral Disorder, Concentration difficultie, Decreased libido, Depression, Disorientation, Hallucinations, Hostility, Irritablity, Memory difficulties, Mood Swings, Obsessive thoughts, Physical abuse, Sexual abuse, Sleep disturbances, Suicidal ideation, Other Eyes: No Blurry vision, No Decreased vision, No Double vision, No Dry eyes, No Excessive tearing, No Eye Pain, No Itchy Eyes, No Loss of vision, No Photophobia, No Scotomata, No Uses contacts, No Uses glasses, No Other HEENT: YES: Heacaches; No: Visual Changes, Hearing change, Nasal congestion, Nasal discharge, Oral lesions, Sinus pain, Sore Throat, Epistaxis, Sneezing, Snoring, Tinnitus, Vertigo, Vocal changes, Other ALLERGY AND IMMUNOLOGY: No: Hives, Insect Bite Sensitivity, Itchy/Watery Eyes, Nasal Congestion, Post Nasal Drip, Seasonal Allergies, Other Hematological and Lymphatic: No: Bleeding Problems, Blood Clots, Blood Transfusions, Brusing, Night Sweats, Pallor, Swollen Lymph Nodes, Other ENDOCRINE: No: Breast Changes, Galactorrhea, Hair Pattern Changes, Hot Flashes, Malaise/lethargy, Mood Swings, Palpitations, Polydipsia/polyuria, Skin Changes, Temperature Intolerance, Unexpected Weight Changes, Other Breast: No New/Changing Breast Lumps, No Nipple changes, No Nipple discharge, No Other Respiratory: YES: Cough, Shortness of breath, SOB with excertion; No: Hemoptysis, Orthopnea, Pleuritic Pain, Sputum Changes, Stridor, Tachypnea, Wheezing, Other Cardiovascular: yes Orthopnea, yes Edema; No Chest Pain, No Palpitations, No Paroxysmal Noc. Dyspnea, No Lt Headedness, No Other Gastrointestinal: No Nausea, No Vomiting, No Abdominal Pain, No Diarrhea, No Constipation, No Melena, No Hematochezia, No Other Genitourinary: No Dysuria, No Frequency, No Incontinence, No Hematuria, No Retention, No Discharge, No Urgency, No Pain, No Flank Pain, No Other, No , No , No , No , No , No , No Musculoskeletal: No Gait Disturbance, No Joint Pain, No Joint Stiffness, No Joint Swelling, No Muscle Pain, No Muscular Weakness, No Pain In:, No Swelling In:, No Other Neurological: No Behavorial Changes, No Bowel/Bladder ControlChng, No Confusion, No Dizziness, No Gait Disturbance, No Headaches, No Impaired Coord/balance, No Memory Loss, No Numbness/Tingling, No Seizures, No Speech Problems, No Tremors, No Visual Changes, No Weakness, No Other Skin: No Dry Skin, No Eczema, No Hair Changes, No Lumps, No Mole Changes, No Mottling, No Nail Changes, No Pruritus, No Rash, No Skin Lesion Changes, No Other, No Acne Physical Exam General: Alert, Oriented X3, Cooperative, mild distress HEENT: Atraumatic, PERRLA, EOMI, Mucous membr. moist/pink Lungs: Other (Scattered bilateral wheezing) Heart: S1S2, RRR, no thrills, no rubs Abdomen: Normal bowel sounds, Soft, No tenderness, No hepatosplenomegaly, No masses Extremities: No clubbing, No cyanosis, Normal pulses, No tenderness/swelling, Other (2+ edema) Skin: No rashes, No breakdown, No significant lesion Neuro: Normal gait, Normal speech, Strength at 5/5 X4 ext, Normal tone, Sensation intact, Cranial nerves 3-12 NL, Reflexes 2+ Psych/Mental Status: Mental status NL, Mood NL Vitals Vitals Vital Signs Date Time Temp Pulse Resp B/P (MAP) Pulse Ox O2 Delivery O2 Flow Rate FiO2 12/17/19 06:53 Room Air 12/17/19 02:13 71 134/71 (92) 94 12/16/19 21:30 98.1 18 98.1 Labs Labs Laboratory Tests Test 12/16/19 20:30 12/16/19 21:57 White Blood Count 4.3 x10^3/uL (4.0-11.0) Red Blood Count 3.85 x10^6/uL (3.50-5.40) Hemoglobin 12.0 g/dL (12.0-15.5) Hematocrit 35.7 % (36.0-47.0) Mean Corpuscular Volume 93 fL (79-100) Mean Corpuscular Hemoglobin 31 pg (25-35) Mean Corpuscular Hemoglobin Concent 34 g/dL (31-37) Red Cell Distribution Width 15.8 % (11.5-14.5) Platelet Count 183 x10^3/uL (140-400) Neutrophils (%) (Auto) 66 % (31-73) Lymphocytes (%) (Auto) 24 % (24-48) Monocytes (%) (Auto) 8 % (0-9) Eosinophils (%) (Auto) 1 % (0-3) Basophils (%) (Auto) 1 % (0-3) Neutrophils # (Auto) 2.9 x10^3/uL (1.8-7.7) Lymphocytes # (Auto) 1.0 x10^3/uL (1.0-4.8) Monocytes # (Auto) 0.4 x10^3/uL (0.0-1.1) Eosinophils # (Auto) 0.0 x10^3/uL (0.0-0.7) Basophils # (Auto) 0.1 x10^3/uL (0.0-0.2) Sodium Level 142 mmol/L (136-145) Potassium Level 4.4 mmol/L (3.5-5.1) Chloride Level 106 mmol/L (98-107) Carbon Dioxide Level 30 mmol/L (21-32) Anion Gap 6 (6-14) Blood Urea Nitrogen 15 mg/dL (7-20) Creatinine 1.0 mg/dL (0.6-1.0) Estimated GFR (Cockcroft-Gault) 66.1 BUN/Creatinine Ratio 15 (6-20) Glucose Level 99 mg/dL (70-99) Calcium Level 8.8 mg/dL (8.5-10.1) Total Bilirubin 2.0 mg/dL (0.2-1.0) Aspartate Amino Transf (AST/SGOT) 24 U/L (15-37) Alanine Aminotransferase (ALT/SGPT) 41 U/L (14-59) Alkaline Phosphatase 71 U/L (46-116) Troponin I Quantitative < 0.017 ng/mL (0.000-0.055) YE-Bov-Z-Type Natriuretic Peptide 5080 pg/mL (0-124) Total Protein 6.5 g/dL (6.4-8.2) Albumin 3.4 g/dL (3.4-5.0) Albumin/Globulin Ratio 1.1 (1.0-1.7) Urine Collection Type Unknown Urine Color Yellow Urine Clarity Clear Urine pH 8.5 (<5.0-8.0) Urine Specific [place] 1.015 (1.000-1.030) Urine Protein 30 mg/dL (NEG-TRACE) Urine Glucose (UA) Negative mg/dL (NEG) Urine Ketones (Stick) Negative mg/dL (NEG) Urine Blood Negative (NEG) Urine Nitrite Negative (NEG) Urine Bilirubin Negative (NEG) Urine Urobilinogen Dipstick 1.0 mg/dL (0.2 mg/dL) Urine Leukocyte Esterase Trace (NEG) Urine RBC 6-10 /HPF (0-2) Urine WBC 1-4 /HPF (0-4) Urine Squamous Epithelial Cells Mod /LPF Urine Bacteria 0 /HPF (0-FEW) Urine Mucus Slight /LPF Laboratory Tests Test 12/16/19 20:30 12/16/19 21:57 White Blood Count 4.3 x10^3/uL (4.0-11.0) Red Blood Count 3.85 x10^6/uL (3.50-5.40) Hemoglobin 12.0 g/dL (12.0-15.5) Hematocrit 35.7 % (36.0-47.0) Mean Corpuscular Volume 93 fL (79-100) Mean Corpuscular Hemoglobin 31 pg (25-35) Mean Corpuscular Hemoglobin Concent 34 g/dL (31-37) Red Cell Distribution Width 15.8 % (11.5-14.5) Platelet Count 183 x10^3/uL (140-400) Neutrophils (%) (Auto) 66 % (31-73) Lymphocytes (%) (Auto) 24 % (24-48) Monocytes (%) (Auto) 8 % (0-9) Eosinophils (%) (Auto) 1 % (0-3) Basophils (%) (Auto) 1 % (0-3) Neutrophils # (Auto) 2.9 x10^3/uL (1.8-7.7) Lymphocytes # (Auto) 1.0 x10^3/uL (1.0-4.8) Monocytes # (Auto) 0.4 x10^3/uL (0.0-1.1) Eosinophils # (Auto) 0.0 x10^3/uL (0.0-0.7) Basophils # (Auto) 0.1 x10^3/uL (0.0-0.2) Sodium Level 142 mmol/L (136-145) Potassium Level 4.4 mmol/L (3.5-5.1) Chloride Level 106 mmol/L (98-107) Carbon Dioxide Level 30 mmol/L (21-32) Anion Gap 6 (6-14) Blood Urea Nitrogen 15 mg/dL (7-20) Creatinine 1.0 mg/dL (0.6-1.0) Estimated GFR (Cockcroft-Gault) 66.1 BUN/Creatinine Ratio 15 (6-20) Glucose Level 99 mg/dL (70-99) Calcium Level 8.8 mg/dL (8.5-10.1) Total Bilirubin 2.0 mg/dL (0.2-1.0) Aspartate Amino Transf (AST/SGOT) 24 U/L (15-37) Alanine Aminotransferase (ALT/SGPT) 41 U/L (14-59) Alkaline Phosphatase 71 U/L (46-116) Troponin I Quantitative < 0.017 ng/mL (0.000-0.055) SW-Kuz-P-Type Natriuretic Peptide 5080 pg/mL (0-124) Total Protein 6.5 g/dL (6.4-8.2) Albumin 3.4 g/dL (3.4-5.0) Albumin/Globulin Ratio 1.1 (1.0-1.7) Urine Collection Type Unknown Urine Color Yellow Urine Clarity Clear Urine pH 8.5 (<5.0-8.0) Urine Specific [place] 1.015 (1.000-1.030) Urine Protein 30 mg/dL (NEG-TRACE) Urine Glucose (UA) Negative mg/dL (NEG) Urine Ketones (Stick) Negative mg/dL (NEG) Urine Blood Negative (NEG) Urine Nitrite Negative (NEG) Urine Bilirubin Negative (NEG) Urine Urobilinogen Dipstick 1.0 mg/dL (0.2 mg/dL) Urine Leukocyte Esterase Trace (NEG) Urine RBC 6-10 /HPF (0-2) Urine WBC 1-4 /HPF (0-4) Urine Squamous Epithelial Cells Mod /LPF Urine Bacteria 0 /HPF (0-FEW) Urine Mucus Slight /LPF Images Images CXR: A pacemaker is unchanged position. The cardiac silhouette is mild to moderately enlarged. Atherosclerotic calcification thoracic aorta is seen. The thoracic aorta is mildly tortuous. No acute pulmonary infiltrate is seen. No pneumothorax or pleural effusion is noted. Degenerative changes are seen involving the thoracic spine and both shoulders. IMPRESSION: Mild to moderate cardiomegaly. No acute pulmonary infiltrate is seen. ECHO: Left ventricle systolic function is severely impaired The Ejection Fraction is 15-20% Transmitral Doppler flow pattern is Grade II-pseudonormal filling dynamics. There is a pacemaker lead in the right ventricle. Severe mitral regurgitation. Mild tricuspid regurgitation. There is moderate pulmonary hypertension. The PA pressure was estimated at 58 mmHg. There is no evidence of significant pericardial effusion. DATE: 11/08/18 1241 VTE Prophylaxis Ordered VTE Prophylaxis Devices: No VTE Pharmacological Prophylaxi: Yes Assessment/Plan Assessment/Plan A/P: Acute hypoxic respiratory failure secondary to acute on chronic systolic heart failure. Will f/u on COVID 19, though this is much less likely. No sign of ILD or rheumatoid lung. Acute on chronic systolic CHF - IV lasix helping. Cont entresto, statin, Cardiology consulted. Maintain telemetry Nonischemic cardiomyopathy with historic EF 15 to 20% HTN - controlled HLP H/o ventricular tachycardia - on amiodarone AICD insitu - [employer] - will interrogate device Diet noncompliance: eats a lot of process food which would contribute to her refractory CHF FEN - Cardiac diet PPX - lovenox FULL CODE Dispo - inpatient 2 midnights. COVID-19 CRITERIA: The patient was evaluated during the global COVID-19 pandemic, and that diagnosis was suspected/considered upon their initial presentation. Their evaluation, treatment and testing was consistent with current guidelines for patients who present with complaints or symptoms that may be related to COVID-19. Justicifation of Admission Dx: Justifications for Admission: Justification of Admission Dx: Yes LUCY NEWMAN MD Dec 17, 2019 07:56
[2019-12-17] MEDS: IPRATRPIUM/ALBUTEROL 0.5/2.5MG 3 ML NEBU. NEB SCH ×4 (08:00→19:12)
--- NOTE | 2019-12-17 08:09 | EKG ---
[facility] [address] [place] [address] Test Date: 2019-12-16 Test Time: 21:22:09 Pat Name: CY HENDERSON Department: Room: 654 1 Gender: F [employer] Journalist: : 1950 Requested By: STEVE SANTOS Order Number: [id number] Reading MD: Toni Levy MD Measurements Intervals [place] Rate: 72 P: 43 TX: 194 QRS: -50 QRSD: 122 T: 76 QT: 458 QTc: 503 Interpretive Statements SINUS RHYTHM LBBB Electronically Signed On 12-18-2019 13:48:03 CDT by Toni Levy MD
[2019-12-17] MEDS ORDERED: FUROSEMIDE 40 MG/4 ML VIAL. IVP ONE (08:15)
[2019-12-17] MEDS ORDERED: ONDANSETRON PF 4 MG/2 ML VIAL. IV PRN (08:15)
[2019-12-17] MEDS ORDERED: ALPR1TAB6 PO (09:33)
[2019-12-17] MEDS ORDERED: FLUT12AE2 INH (09:33)
[2019-12-17] MEDS ORDERED: BUME2TAB3 PO (09:33)
[2019-12-17] MEDS: OMEGA-3 FATTY ACIDS/FISH OIL 1,000 MG CAPSULE. PO SCH (09:42)
[2019-12-17] MEDS: CARVEDILOL 6.25 MG TABLET. PO SCH ×2 (09:42→16:33)
[2019-12-17] MEDS: SACUBITRIL/VALSARTAN 49/51MG TABLET. PO SCH ×2 (09:43→20:39)
[2019-12-17] MEDS: ASPIRIN CHEWABLE 81 MG TABLET. PO SCH (09:43)
[2019-12-17] MEDS: AMIODARONE HCL 200 MG TABLET. PO SCH (09:43)
[2019-12-17] MEDS: DULoxetine HCL 30 MG CAPSULE.DR PO SCH (09:43)
[2019-12-17] MEDS ORDERED: FUROSEMIDE 20 MG/2 ML VIAL. IVP ONE (11:00)
--- NOTE | 2019-12-17 11:05 | CONS ---
DATE OF CONSULTATION: PULMONARY CONSULTATION ATTENDING PHYSICIAN: Dr. Veronica Rosenthal. REASON FOR CONSULTATION: Hypoxia. HISTORY OF PRESENT ILLNESS: The patient is a 69-year-old female who has history of cardiomyopathy with an EF of 15-20%. She presented to the hospital with increasing shortness of breath. The patient is a lifetime nonsmoker. She has some lower extremity edema and some weight gain as well. She has history of rheumatoid arthritis. The patient was seen in the Emergency Room. She was placed on oxygen at 2 liters, saturation was 97%. She is currently off of oxygen and on room air. The patient's chest x-ray was reviewed and was consistent with congestive heart failure. She has a cough, which has been nonproductive. No fever, no chills. No obvious COVID exposures. No chest pains. PAST MEDICAL HISTORY: History of severe cardiomyopathy with an EF of 15%, history of hypertension, CHF, hyperlipidemia, osteoarthritis, gout and rheumatoid arthritis. PAST SURGICAL HISTORY: Pacemaker and hernia repair. FAMILY HISTORY: Coronary artery disease. SOCIAL HISTORY: Nonsmoker. ALLERGIES: None. MEDICATIONS: Reviewed as listed in the MRAD including amiodarone. REVIEW OF SYSTEMS: Twelve-point system obtained. Pertinent positives discussed in my history of present illness, otherwise noncontributory. All systems that were negative were reviewed as well. PHYSICAL EXAMINATION: VITAL SIGNS: Reviewed, pulse ox is now 98% on room air. Blood pressure is stable. HEENT: Sclerae nonicteric. NECK: Supple. LUNGS: With diminished breath sounds. CARDIOVASCULAR: With a regular rate. ABDOMEN: Soft, obese. EXTREMITIES: With trace pitting edema. LABORATORY DATA: Reviewed. White cell count 4.3, hemoglobin 12.0, platelets of 183. BUN 15, creatinine 1.0. ProBNP is 5080. IMPRESSION: 1. Acute hypoxic respiratory failure secondary to acute on chronic systolic heart failure. 2. Clinically, less likely pneumonia or interstitial lung disease related to amiodarone or related to rheumatoid arthritis. 3. No significant tobacco history. RECOMMENDATIONS: 1. Continue present diuresis. 2. Follow Cardiology consult and recommendation. 3. Follow up chest x-ray to see response to diuresis. 4. Currently, she is weaned off of oxygen and has responded to Lasix. 5. Discussed with RN. 6. COVID suspicion is less clinically. VICTOR MANUEL ALVES MD DR: Nellie JOB#: [id number] / [id number]
--- NOTE | 2019-12-17 14:24 | PDOC2 ---
DIEGO SANCHEZ WARP TIER 12/17/19 1424: CARDIAC CONSULT DATE OF CONSULT Date of Consult DATE: 12/17/19 TIME: 1050 REASON FOR CONSULT Reason for Consult: CHF REFERRING PHYSICIAN Referring Physician: Chris SOURCE Source: Chart review, Patient HISTORY OF PRESENT ILLNESS HISTORY OF PRESENT ILLNESS This is a pleasant 69 yo female admitted for complains of SOA. She has been stressed out in regards to family dynamics and has lost her car keys that maybe she has thrown it in the trash. Yesterday she started feeling SOA and it got worse at the end of the day despite use of her breathing treatments. No fever or chills. She is not sure about what diuretic she is currently on right now. She does tell me that she drinks more water at times but more importantly she has not been adhering to salt restrictions describing eating fried foods and salty food and sweets. She also has been having some cough and has been able to sleep well in the last 3 days. She is not clear about the meds that she currently takes but verbalized compliance. No chest pain or palpitations. Some swelling to her legs but not significant. No dizziness or palpitations. Reported that she was tested for SHELTON and reported that she does not have it. PAST MEDICAL HISTORY Past Medical History Cardiovascular: CHF, HTN, Hyperlipidemia, Other (Severe cardiomyopathy; NSVT) GI: Constipation Musculoskeletal: Osteoarthritis Rheumatologic: No pertinent hx Infectious disease: No pertinent hx ENT: No pertinent hx Renal/: No pertinent hx Endocrine: No pertinent hx Dermatology: No pertinent hx PAST SURGICAL HISTORY Past Surgical History Pacemaker (AICD medtronic), Hernia Repair, Other ([facility] 08/2017 with normal coronaries with EF at 25%) FAMILY HISTORY Family History Coronary Artery Disease (sister) SOCIAL HISTORY Social History Smoke: Quit ALCOHOL: none Drugs: None Lives: Alone CURRENT MEDICATIONS CURRENT MEDICATIONS Current Medications Medications (Trade) Dose Ordered Sig/Ovi Route PRN Reason Start Time Stop Time Status Last Admin Dose Admin Albuterol Sulfate (Ventolin Neb Soln) 2.5 mg 1X ONCE NEB 12/16/19 22:00 12/16/19 22:01 DC 12/16/19 22:02 Methylprednisolone Sodium Succinate (SOLU-Medrol 125MG VIAL) 125 mg 1X ONCE IV 12/16/19 22:00 12/16/19 22:01 DC 12/16/19 21:56 Amiodarone HCl (Cordarone) 200 mg DAILY PO 12/17/19 09:00 12/17/19 09:43 Aspirin (Aspirin Chewable) 81 mg DAILY PO 12/17/19 09:00 12/17/19 09:43 Carvedilol (Coreg) 6.25 mg BIDWMEALS PO 12/17/19 08:15 12/17/19 09:42 Fish Oil (Fish Oil) 1,000 mg DAILY PO 12/17/19 09:00 12/17/19 09:42 Sacubitril/ Valsartan (Entresto 49 Mg-51 Mg) 1 tab BID PO 12/17/19 09:00 12/17/19 09:43 Duloxetine HCl (Cymbalta) 60 mg DAILY PO 12/17/19 09:00 12/17/19 09:43 Furosemide (Lasix) 40 mg 1X ONCE IVP 12/17/19 08:15 12/17/19 08:16 DC 12/17/19 09:42 ALLERGIES ALLERGIES: Coded Allergies: No Known Drug Allergies (Unverified , 07/06/14) ROS Review of System 14 point ROS evaluated with pertinent positives noted per HPI PHYSICAL EXAM General: Alert, Oriented X3, Cooperative, No acute distress HEENT: Atraumatic, Mucous membr. moist/pink Lungs: Other (diminished) Heart: Regular rate (SR with chronic LBBB), Other (3/6 systolic murmur to LLS border) Abdomen: Soft, No tenderness Extremities: No cyanosis, Other (trace to 1+ bilateral LE pitting edema) Skin: No breakdown, No significant lesion Neuro: Normal speech, Sensation intact Psych/Mental Status: Mental status NL, Mood NL MUSCULOSKELETAL: Osteoarthritic changes both hands VITALS/I&O VITALS/I&O: Vital Signs Date Time Temp Pulse Resp B/P (MAP) Pulse Ox O2 Delivery O2 Flow Rate FiO2 12/17/19 11:17 96.6 76 20 142/77 (98) 98 Room Air 96.6 LABS Lab: Laboratory Tests Test 12/16/19 20:30 12/16/19 21:57 White Blood Count 4.3 x10^3/uL (4.0-11.0) Red Blood Count 3.85 x10^6/uL (3.50-5.40) Hemoglobin 12.0 g/dL (12.0-15.5) Hematocrit 35.7 % (36.0-47.0) L Mean Corpuscular Volume 93 fL (79-100) Mean Corpuscular Hemoglobin 31 pg (25-35) Mean Corpuscular Hemoglobin Concent 34 g/dL (31-37) Red Cell Distribution Width 15.8 % (11.5-14.5) H Platelet Count 183 x10^3/uL (140-400) Neutrophils (%) (Auto) 66 % (31-73) Lymphocytes (%) (Auto) 24 % (24-48) Monocytes (%) (Auto) 8 % (0-9) Eosinophils (%) (Auto) 1 % (0-3) Basophils (%) (Auto) 1 % (0-3) Neutrophils # (Auto) 2.9 x10^3/uL (1.8-7.7) Lymphocytes # (Auto) 1.0 x10^3/uL (1.0-4.8) Monocytes # (Auto) 0.4 x10^3/uL (0.0-1.1) Eosinophils # (Auto) 0.0 x10^3/uL (0.0-0.7) Basophils # (Auto) 0.1 x10^3/uL (0.0-0.2) Sodium Level 142 mmol/L (136-145) Potassium Level 4.4 mmol/L (3.5-5.1) Chloride Level 106 mmol/L (98-107) Carbon Dioxide Level 30 mmol/L (21-32) Anion Gap 6 (6-14) Blood Urea Nitrogen 15 mg/dL (7-20) Creatinine 1.0 mg/dL (0.6-1.0) Estimated GFR (Cockcroft-Gault) 66.1 BUN/Creatinine Ratio 15 (6-20) Glucose Level 99 mg/dL (70-99) Calcium Level 8.8 mg/dL (8.5-10.1) Total Bilirubin 2.0 mg/dL (0.2-1.0) H Aspartate Amino Transferase (AST) 24 U/L (15-37) Alanine Aminotransferase (ALT) 41 U/L (14-59) Alkaline Phosphatase 71 U/L (46-116) Troponin I Quantitative < 0.017 ng/mL (0.000-0.055) XV-Qbk-H-Type Natriuretic Peptide 5080 pg/mL (0-124) H Total Protein 6.5 g/dL (6.4-8.2) Albumin 3.4 g/dL (3.4-5.0) Albumin/Globulin Ratio 1.1 (1.0-1.7) Urine Collection Type Unknown Urine Color Yellow Urine Clarity Clear Urine pH 8.5 (<5.0-8.0) Urine Specific [place] 1.015 (1.000-1.030) Urine Protein 30 mg/dL (NEG-TRACE) Urine Glucose (UA) Negative mg/dL (NEG) Urine Ketones (Stick) Negative mg/dL (NEG) Urine Blood Negative (NEG) Urine Nitrite Negative (NEG) Urine Bilirubin Negative (NEG) Urine Urobilinogen Dipstick 1.0 mg/dL (0.2 mg/dL) Urine Leukocyte Esterase Trace (NEG) Urine RBC 6-10 /HPF (0-2) Urine WBC 1-4 /HPF (0-4) Urine Squamous Epithelial Cells Mod /LPF Urine Bacteria 0 /HPF (0-FEW) Urine Mucus Slight /LPF Laboratory Tests 12/16/19 20:30 Laboratory Tests 12/16/19 20:30 ECHOCARDIOGRAM ECHOCARDIOGRAM <Conclusion> Left ventricle systolic function is severely impaired The Ejection Fraction is 15-20% Transmitral Doppler flow pattern is Grade II-pseudonormal filling dynamics. There is a pacemaker lead in the right ventricle. Severe mitral regurgitation. Mild tricuspid regurgitation. There is moderate pulmonary hypertension. The PA pressure was estimated at 58 mmHg. There is no evidence of significant pericardial effusion. DATE: 11/08/18 1241 ASSESSMENT/PLAN ASSESSMENT/PLAN 1. Acute on chronic systolic CHF: currently compensated 2. NICM: last known EF at 15% NYHA 1-2 3. HTN: controlled 4. HLP 5. Hx of NSVT: on home amiodarone 6. AICD insitu: Medtronic 7. Diet noncompliance: eats a lot of process food which would contribute to her refractory CHF 8. PUI 9. Anxiety Recommendations 1. Pt unclear about home diuretics. Likely on bumex at home. Will resume PO diuretics as currently she appears compensated. Will obtain TTE if negative for covid 2. Will interrogate device and note optivol if negative PCR. Discussed daily wt, FR and diet compliance. Dietitian consult. 3. Continue with amiodarone, secondary prevention measures and entresto 4. Will verify current meds with pharmacy, discussed with RN PERRY STINSON MD 12/17/192026: CARDIAC CONSULT ASSESSMENT/PLAN ASSESSMENT/PLAN Agree with MOBILE ARCHITECT's assessment and plan. Continue diuresis for ac on chr systolic HF Recent 2D echo showed EF 15-20% Cardiac cath 2018 did not show any significant CAD Plan outpatient referral to Valve clinic for possible mitral valve clip proce dure secondary to severe MR (secondary) Thank you for your consultation DIEGO SANCHEZ APRN Dec 17, 2019 14:24 PERRY STINSON MD Dec 17, 2019 20:27
--- NOTE | 2019-12-17 17:22 | NUR ---
SW following. Reviewed chart and discussed with RN. Pt from home, room air, cardiac diet. No PT/OT needs. Pt COVID positive. No anticipated SW needs at discharge. Addendum: 12/18/19 at 1036 by FINESSE WILKINS SW Pt is actually COVID negative.
[2019-12-18 03:00] VITALS: BP 115/62
[2019-12-18] MEDS ORDERED: BENZOCAINE/MENTHOL LOZENGE. PO PRN (03:00)
[2019-12-18] MEDS ORDERED: ALBUTEROL SULFATE 2.5 MG/3 ML NEBU. NEB PRN (03:00)
[2019-12-18 04:49] LABS: CALCIUM 8.2 mg/dL (8.5-10.1); CREATININE 1.1 mg/dL (0.6-1.0); GFR 59.2; MAGNESIUM 2.2 mg/dL (1.8-2.4); POTASSIUM 4.1 mmol/L (3.5-5.1)
[2019-12-18 04:58] LABS: CHOLESTEROL/HDL RATIO 3.1
[2019-12-18] MEDS: IPRATRPIUM/ALBUTEROL 0.5/2.5MG 3 ML NEBU. NEB SCH ×3 (06:58→15:24)
[2019-12-18 07:00] VITALS: BP 118/55
[2019-12-18] MEDS ORDERED: BUMETANIDE 1 MG TABLET. PO SCH (09:00)
[2019-12-18] MEDS: SACUBITRIL/VALSARTAN 49/51MG TABLET. PO SCH (09:42)
[2019-12-18] MEDS: CARVEDILOL 6.25 MG TABLET. PO SCH ×2 (09:42→17:16)
[2019-12-18] MEDS: ASPIRIN CHEWABLE 81 MG TABLET. PO SCH (09:42)
[2019-12-18] MEDS: AMIODARONE HCL 200 MG TABLET. PO SCH (09:42)
[2019-12-18] MEDS: OMEGA-3 FATTY ACIDS/FISH OIL 1,000 MG CAPSULE. PO SCH (09:42)
[2019-12-18] MEDS: DULoxetine HCL 30 MG CAPSULE.DR PO SCH (09:43)
--- NOTE | 2019-12-18 10:36 | NUR ---
KARISSA following. Reviewed chart and discussed with RN. Pt is a possible discharge home today self-care pending cardiology approval. No SW needs at discharge. Addendum: 12/18/19 at 1454 by FINESSE HANCOCK SW consult for completion of advanced directives. KARISSA provided pt with a POA HC form and some literature. KARISSA offered to assist pt in completion and notarization of the form. Pt declined and stated she did not want to sign anything without her dtr being present. Pt's dtr works until 6pm. Pt stated she will get POA HC form notarized at her bank.
[2019-12-18 11:00] VITALS: BP 111/63
--- NOTE | 2019-12-18 11:23 | PDOC ---
PULMONARY PROGRESS NOTES DATE: 12/18/19 TIME: 11:19 Subjective Pt. resting on R/A no overnight concerns No SOA, No CP, No cough Feeling much better Ready to go home Vitals Vital Signs Date Time Temp Pulse Resp B/P (MAP) Pulse Ox O2 Delivery O2 Flow Rate FiO2 12/18/19 11:08 Room Air 12/18/19 11:00 98.3 66 18 111/63 (79) 98 98.3 ROS: No Nausea, No Chest Pain, No Abdominal Pain, No Increase Cough General: Alert, Oriented X4 Lungs: Clear Cardiovascular: S1, S2 Abdomen: Soft Neuro Exam: Alert Extremities: Other (trace BLE) Skin: Warm, Dry Labs Laboratory Tests Test 12/16/19 20:30 12/16/19 21:51 12/16/19 21:57 12/18/19 03:40 White Blood Count 4.3 x10^3/uL (4.0-11.0) Red Blood Count 3.85 x10^6/uL (3.50-5.40) Hemoglobin 12.0 g/dL (12.0-15.5) Hematocrit 35.7 % (36.0-47.0) Mean Corpuscular Volume 93 fL (79-100) Mean Corpuscular Hemoglobin 31 pg (25-35) Mean Corpuscular Hemoglobin Concent 34 g/dL (31-37) Red Cell Distribution Width 15.8 % (11.5-14.5) Platelet Count 183 x10^3/uL (140-400) Neutrophils (%) (Auto) 66 % (31-73) Lymphocytes (%) (Auto) 24 % (24-48) Monocytes (%) (Auto) 8 % (0-9) Eosinophils (%) (Auto) 1 % (0-3) Basophils (%) (Auto) 1 % (0-3) Neutrophils # (Auto) 2.9 x10^3/uL (1.8-7.7) Lymphocytes # (Auto) 1.0 x10^3/uL (1.0-4.8) Monocytes # (Auto) 0.4 x10^3/uL (0.0-1.1) Eosinophils # (Auto) 0.0 x10^3/uL (0.0-0.7) Basophils # (Auto) 0.1 x10^3/uL (0.0-0.2) Sodium Level 142 mmol/L (136-145) 141 mmol/L (136-145) Potassium Level 4.4 mmol/L (3.5-5.1) 4.1 mmol/L (3.5-5.1) Chloride Level 106 mmol/L (98-107) 103 mmol/L (98-107) Carbon Dioxide Level 30 mmol/L (21-32) 30 mmol/L (21-32) Anion Gap 6 (6-14) 8 (6-14) Blood Urea Nitrogen 15 mg/dL (7-20) 21 mg/dL (7-20) Creatinine 1.0 mg/dL (0.6-1.0) 1.1 mg/dL (0.6-1.0) Estimated GFR (Cockcroft-Gault) 66.1 59.2 BUN/Creatinine Ratio 15 (6-20) Glucose Level 99 mg/dL (70-99) 102 mg/dL (70-99) Calcium Level 8.8 mg/dL (8.5-10.1) 8.2 mg/dL (8.5-10.1) Total Bilirubin 2.0 mg/dL (0.2-1.0) Aspartate Amino Transf (AST/SGOT) 24 U/L (15-37) Alanine Aminotransferase (ALT/SGPT) 41 U/L (14-59) Alkaline Phosphatase 71 U/L (46-116) Troponin I Quantitative < 0.017 ng/mL (0.000-0.055) BM-Fac-F-Type Natriuretic Peptide 5080 pg/mL (0-124) Total Protein 6.5 g/dL (6.4-8.2) Albumin 3.4 g/dL (3.4-5.0) Albumin/Globulin Ratio 1.1 (1.0-1.7) Coronavirus (PCR) Not detected (Not Detected) Urine Collection Type Unknown Urine Color Yellow Urine Clarity Clear Urine pH 8.5 (<5.0-8.0) Urine Specific [place] 1.015 (1.000-1.030) Urine Protein 30 mg/dL (NEG-TRACE) Urine Glucose (UA) Negative mg/dL (NEG) Urine Ketones (Stick) Negative mg/dL (NEG) Urine Blood Negative (NEG) Urine Nitrite Negative (NEG) Urine Bilirubin Negative (NEG) Urine Urobilinogen Dipstick 1.0 mg/dL (0.2 mg/dL) Urine Leukocyte Esterase Trace (NEG) Urine RBC 6-10 /HPF (0-2) Urine WBC 1-4 /HPF (0-4) Urine Squamous Epithelial Cells Mod /LPF Urine Bacteria 0 /HPF (0-FEW) Urine Mucus Slight /LPF Magnesium Level 2.2 mg/dL (1.8-2.4) Triglycerides Level 71 mg/dL (0-150) Cholesterol Level 209 mg/dL (0-200) LDL Cholesterol, Calculated 128 mg/dL (0-100) VLDL Cholesterol, Calculated 14 mg/dL (0-40) Non-HDL Cholesterol Calculated 142 mg/dL (0-129) HDL Cholesterol 67 mg/dL (40-60) Cholesterol/HDL Ratio 3.1 Laboratory Tests Test 12/18/19 03:40 Sodium Level 141 mmol/L (136-145) Potassium Level 4.1 mmol/L (3.5-5.1) Chloride Level 103 mmol/L (98-107) Carbon Dioxide Level 30 mmol/L (21-32) Anion Gap 8 (6-14) Blood Urea Nitrogen 21 mg/dL (7-20) Creatinine 1.1 mg/dL (0.6-1.0) Estimated GFR (Cockcroft-Gault) 59.2 Glucose Level 102 mg/dL (70-99) Calcium Level 8.2 mg/dL (8.5-10.1) Magnesium Level 2.2 mg/dL (1.8-2.4) Triglycerides Level 71 mg/dL (0-150) Cholesterol Level 209 mg/dL (0-200) LDL Cholesterol, Calculated 128 mg/dL (0-100) VLDL Cholesterol, Calculated 14 mg/dL (0-40) Non-HDL Cholesterol Calculated 142 mg/dL (0-129) HDL Cholesterol 67 mg/dL (40-60) Cholesterol/HDL Ratio 3.1 Medications Active Scripts Medications Dose Route/Sig Max Daily Dose Days Date Category Flovent 220MCG Hfa (Fluticasone Propionate) 12 Gm Aer.w.adap 12 Gm INH BID 12/17/19 Reported Bumetanide 2 Mg Tablet 2 Mg PO DAILY 12/17/19 Reported Alprazolam 1 Mg Tablet 1 Mg PO TID PRN PRN 12/17/19 Reported Cymbalta (Duloxetine Hcl) 60 Mg Capsule.dr 1 Cap PO DAILY 30 11/08/18 Rx Percocet 10-325 Mg Tablet (Oxycodone/Acetaminophen) 1 Each Tablet 1 Tab PO PRN Q6HRS PRN 30 11/08/18 Rx Proair Hfa Inhaler (Albuterol Sulfate) 8.5 Gm Hfa.aer.ad 2 Puff INH PRN Q6HRS PRN 30 11/08/18 Rx Entresto 49 mg-51 mg Tablet (Sacubitril/Valsartan) 1 Each Tablet 1 Each PO BID 30 11/08/18 Rx Potassium Chloride (Potassium Chloride) 20 Meq Tablet.er 20 Meq PO DAILY 11/08/18 Reported Fish Oil 1,000 Mg Capsule ([place]-3 Fatty Acids/Fish Oil) 1 Each Capsule 1 Each PO DAILY 11/08/18 Reported Simvastatin 10 Mg Tablet 1 Tab PO QHS 11/08/18 Reported Amiodarone Hcl 200 Mg Tablet 1 Tab PO DAILY 11/08/18 Reported Children's Aspirin (Aspirin) 81 Mg Tab.chew 81 Mg PO DAILY 10/26/13 Reported Carvedilol (Carvedilol) 6.25 Mg Tablet 6.25 Mg PO BID 04/17/13 Reported Comments CXR IMPRESSION: Mild to moderate cardiomegaly. No acute pulmonary infiltrate is seen. Impression . IMPRESSION: 1. Acute hypoxic respiratory failure secondary to acute on chronic systolic heart failure.--resolved 2. Clinically, less likely pneumonia or interstitial lung disease related to amiodarone or related to rheumatoid arthritis. 3. No significant tobacco history. 4. Cardiomyopathy- EF 25 % Plan . RECOMMENDATIONS: Stable from pulmonary stand point Remains on room air, responded well to IV lasix Covid 19 (NEG) follow cardiology recs Follow CXR PRN DVT/GI PPX OK to D/C home from our stand point VICTOR MANUEL ALVES MD Dec 18, 2019 11:23
--- NOTE | 2019-12-18 11:28 | PDOC ---
DIEGO SANCHEZ TAX ASSOCIATE 12/18/19 1128: CARDIO Progress Notes Date and Time Date of Service 12/18/2019 Time of Evaluation 1100 Subjective Subjective: No Chest Pain, No shortness of breath, No Palpitations Vitals Vitals Vital Signs Date Time Temp Pulse Resp B/P (MAP) Pulse Ox O2 Delivery O2 Flow Rate FiO2 12/18/19 11:08 Room Air 12/18/19 11:00 98.3 66 18 111/63 (79) 98 98.3 Weight Weight [ ] Input and Output Intake and Output Intake and Output 12/18/19 07:00 Intake Total 800 ml Output Total 1400 ml Balance -600 ml Intake Oral 800 ml Output Urine Total 1400 ml # Voids 3 Laboratory Labs Laboratory Tests Test 12/18/19 03:40 Sodium Level 141 mmol/L (136-145) Potassium Level 4.1 mmol/L (3.5-5.1) Chloride Level 103 mmol/L (98-107) Carbon Dioxide Level 30 mmol/L (21-32) Anion Gap 8 (6-14) Blood Urea Nitrogen 21 mg/dL (7-20) Creatinine 1.1 mg/dL (0.6-1.0) Estimated GFR (Cockcroft-Gault) 59.2 Glucose Level 102 mg/dL (70-99) Calcium Level 8.2 mg/dL (8.5-10.1) Magnesium Level 2.2 mg/dL (1.8-2.4) Triglycerides Level 71 mg/dL (0-150) Cholesterol Level 209 mg/dL (0-200) LDL Cholesterol, Calculated 128 mg/dL (0-100) VLDL Cholesterol, Calculated 14 mg/dL (0-40) Non-HDL Cholesterol Calculated 142 mg/dL (0-129) HDL Cholesterol 67 mg/dL (40-60) Cholesterol/HDL Ratio 3.1 Microbiology Micro Microbiology 12/16/19 Urine Culture - Final, Complete Physical Exam HEENT: Neck Supple W Full Motion Chest: Symmetric LUNGS: Clear to Auscultation Heart: S1S2, RRR (SR) Abdomen: Soft N/T Extremities: No Edema Neurology: alert, oriented, follow commands Assessment Assessment 1. Acute on chronic systolic CHF: compensated 2. NICM: last known EF at 15% NYHA 1-2 3. HTN: controlled 4. HLP 5. Hx of NSVT: on home amiodarone. No episodes 6. AICD insitu: Medtronic. Interrogation revealed normal device no VT/AF, optivol slightly elevated 7. Diet noncompliance: eats a lot of process food which would contribute to her refractory CHF 8. Anxiety Recommendations 1. TTE today. Anticipate DC today. No lasix and continue bumex. 2. Discussed compliance with diet, FR and daily wt. Dietitian consult. 3. Continue with amiodarone, secondary prevention measures and entresto 4. Stress test is already discussed prior to her appt in 04/28/2020 which has to be arranged through [facility] due to her health insurance. Justicifation of Admission Dx: Justifications for Admission: Justification of Admission Dx: Yes PERRY STINSON MD 12/18/19 1545: CARDIO Progress Notes Assessment Assessment Agree with CVT TECH's assessment and plan. Acute on chronic systolic heart failure better compensated. Recent 2D echo showed EF 15-20% Cardiac cath 2018 did not show any significant CAD Plan outpatient referral to Valve clinic for possible mitral valve clip procedure secondary to severe MR (secondary) DIEGO SANCHEZ APRN Dec 18, 2019 11:28 PERRY STINSON MD Dec 18, 2019 15:45
[2019-12-18 15:00] VITALS: BP 117/60
--- NOTE | 2019-12-18 16:25 | RAD ---
Single view of the chest. 12/18/2019 8:00 AM Indication: Reason: CHF / Spl. Instructions: / History: Comparison: Chest radiograph December 16, 2019 Findings: The heart is enlarged but similar to comparison study. There is a multilead pacemaking/ICD device from left subclavian approach. No pneumothorax or pleural effusion is identified. No focal infiltrate is seen. No definitive central vascular congestion is seen. IMPRESSION: No radiographic evidence of acute cardiopulmonary process Electronically signed by: Maxi Herrera MD (12/18/2019 4:22 PM) [id number]
[2019-12-18] MEDS ORDERED: LIDO:MAALOX:BENADRYL 1:1:1 180 ML BOTTLE. PO PRN (16:30)
[2019-12-18] MEDS ORDERED: SACU1TAB7 PO (16:47)
[2019-12-18] MEDS ORDERED: OMEG1CAP6 PO (16:47)
[2019-12-18] MEDS ORDERED: CARV6.2511 PO (16:47)
[2019-12-18] MEDS ORDERED: DULO60CA6 PO (16:47)
--- NOTE | 2019-12-18 16:49 | SNU/HH DC ---
DISCHARGE WITH HOME HEALTH DISCHARGE INFORMATION: Discharge Date: Dec 18, 2019 Final Diagnosis: Problems Medical Problems: (1) Person under investigation for COVID-19 Status: Acute (2) Shortness of breath Status: Acute Condition on Discharge: Stable CODE STATUS: Code Status: Full HOME HEALTH: Face to Face: I certify this patient is under my care and that I, or a nurse practitioner or physician's assistant finance director working with me, had a face to face encounter that meets the physician face to face encounter requirements with this patient on 12/18/2019. Medical Complications: CHF RN For Eval/Treatment: Yes Physical Therapy For: Evalulation/Treatment Occupational Therapy For: Evaluation/Treatment Pt Meets Homebound Status: Extreme weakness w/ amb., Fatigue w/ amb., Limited distance walking POST DISCHARGE ORDERS: Activity Instructions for Disc: Activity as tolerated Weight Bearing Status after Di: No restrictions DIET AFTER DISCHARGE: Cardiac CHECKS AFTER DISCHARGE: Checks after discharge: Check blood press - daily, Check your Temp as needed, Weigh Yourself Daily TREATMENT/EQUIPMENT ORDERS: Adaptive Equipment Issued: None CERTIFICATION STATEMENT: Certification Statement: Certification Statement: Based on the above finding, I certify that this patient is confined to the home and needs intermittent jail care, physical therapy and/or speech therapy, or continues to need occupational therapy.~ This patient is under my care, and I have initiated the establishment of the plan of care.~ This patient will be followed by myself or a community physician who will periodically review the plan of care. Home Meds Active Scripts Duloxetine Hcl (CYMBALTA) 60 Mg Capsule.dr, 1 CAP PO DAILY for anxiety for 30 Days, #30 CAP 5 Refills Prov:LUCY NEWMAN MD 12/18/19 Sacubitril/Valsartan (Entresto 49 mg-51 mg Tablet) 1 Each Tablet, 1 EACH PO BID for chf for 30 Days, #60 TAB 5 Refills Prov:LUCY NEWMAN MD 12/18/19 [place]-3 Fatty Acids/Fish Oil (FISH OIL 1,000 MG CAPSULE) 1 Each Capsule, 1 EACH PO DAILY for CHOLESTEROL for 30 Days, #30 CAP 5 Refills Prov:LUCY NEWMAN MD 12/18/19 Carvedilol (CARVEDILOL ) 6.25 Mg Tablet, 6.25 MG PO BID for CHF for 30 Days, #60 TAB 5 Refills Prov:LUCY NEWMAN MD 12/18/19 Oxycodone/Apap 10-325 (PERCOCET 10-325 MG TABLET ) 1 Each Tablet, 1 TAB PO PRN Q6HRS PRN for PAIN for 30 Days, TAB 0 Refills Prov:JAZIEL ROMERO MD 11/08/18 Albuterol Sulfate (PROAIR HFA INHALER) 8.5 Gm Hfa.aer.ad, 2 PUFF INH PRN Q6HRS PRN for SHORTNESS OF BREATH for 30 Days, INHALER 0 Refills Prov:JAZIEL ROMERO MD 11/08/18 Reported Medications Fluticasone Propionate (FLOVENT 220MCG HFA) 12 Gm Aer.w.adap, 12 GM INH BID for COPD 12/17/19 Bumetanide (BUMETANIDE) 2 Mg Tablet, 2 MG PO DAILY for CHF 12/17/19 Alprazolam (ALPRAZOLAM) 1 Mg Tablet, 1 MG PO TID PRN PRN for ANXIETY / AGITATION 12/17/19 Potassium Chloride (POTASSIUM CHLORIDE ) 20 Meq Tablet.er, 20 MEQ PO DAILY for SUPPLEMENT, TAB.SR 11/08/18 Simvastatin (SIMVASTATIN) 10 Mg Tablet, 1 TAB PO QHS for CHOLESTEROL, #30 TAB 5 Refills 11/08/18 Amiodarone Hcl (AMIODARONE HCL) 200 Mg Tablet, 1 TAB PO DAILY for HEART, #90 TAB 1 Refill 11/08/18 Aspirin (Children's Aspirin) 81 Mg Tab.chew, 81 MG PO DAILY, TAB.CHEW 10/26/13 Discontinued Reported Medications Ranitidine Hcl (RANITIDINE HCL) 150 Mg Capsule, 150 MG PO BID, TAB 10/26/13 LUCY NEWMAN MD Dec 18, 2019 16:49
--- NOTE | 2019-12-18 16:52 | PDOC ---
[employer] PROGRESS NOTE Date of Service DOS: DATE: 12/18/19 TIME: 16:49 Chief Complaint Chief Complaint A pacemaker is unchanged position. The cardiac silhouette is mild to moderately enlarged. Atherosclerotic calcification thoracic aorta is seen. The thoracic aorta is mildly tortuous. No acute pulmonary infiltrate is seen. No pneumothorax or pleural effusion is noted. Degenerative changes are seen involving the thoracic spine and both shoulders. IMPRESSION: Mild to moderate cardiomegaly. No acute pulmonary infiltrate is seen. ECHO: Left ventricle systolic function is severely impaired The Ejection Fraction is 15-20% Transmitral Doppler flow pattern is Grade II-pseudonormal filling dynamics. There is a pacemaker lead in the right ventricle. Severe mitral regurgitation. Mild tricuspid regurgitation. There is moderate pulmonary hypertension. The PA pressure was estimated at 58 mmHg. There is no evidence of significant pericardial effusion. DATE: 11/08/18 1241 A/P: Acute hypoxic respiratory failure secondary to acute on chronic systolic heart failure. COVID 19 negative. No sign of ILD or rheumatoid lung. Seen by pulm and cardiology, restarted cardiac meds Acute on chronic systolic CHF - IV lasix helping. Cont entresto, statin, Cardiology consulted. Maintain telemetry Nonischemic cardiomyopathy with historic EF 15 to 20% - entresto and coreg refilled. HTN - controlled HLP H/o ventricular tachycardia - on amiodarone AICD insitu - Medtronic - no shocks delivered Diet noncompliance: eats a lot of process food which would contribute to her refractory CHF FEN - Cardiac diet PPX - lovenox FULL CODE Dispo - inpatient 2 midnights. History of Present Illness History of Present Illness Ms Funez is a 69 year old female w/ PMHx Arthritis, Arrhythmia, GOUT, CHRONIC PAIN, RHEUMATOID ARTHRITIS, reduced EF CHF with EF 15-20% s/p Pacemaker, defibrillator who presents with headache, cough, shortness of breath for last 3 days. She notes worsening LE edema and weight gain. Initially required 2L NCO2 to maintain O2 saturations > 88% in ED. After dosing with IV lasix she did feel improved in the ED. She states she has a history of asthma and has a breathing machine at home and she has been doing her breathing treatments every 4 hours and it does help. She denies fever, nausea, abdominal pain, diarrhea, dizziness, syncope, vision changes, numbness or tingling, vomiting, focal weakness, dysuria. Patient currently states that she has no pain at this time but she still short of breath but much better than when she first came into the hospital. She is currently off of oxygen and on room air. The patient's chest x-ray was reviewed and was consistent with congestive heart failure. She has a cough, which has been nonproductive. No fever, no chills. No obvious COVID exposures. No chest pains. She has been stressed out in regards to family dynamics and has lost her car keys that maybe she has thrown it in the trash. Yesterday she started feeling SOA and it got worse at the end of the day despite use of her breathing treatments. She relates she drinks much more water and Sprite at times and has been eating salty and fried foods recently. She does have some PND but notes she was tested negative for SHELTON. Labs with BNP 5080, troponin 0, bilirubin 2, NA 142, K4.4, BUN 15, CR 1. Admitted for further care. Off oxygen after diuresis. She is feeling better. Labs stable. She notes she needs refills on her carvedilol and her Entresto as well as her Cymbalta and would like a home health nurse to help her at home. Vitals/I&O Vitals/I&O: Vital Signs Date Time Temp Pulse Resp B/P (MAP) Pulse Ox O2 Delivery O2 Flow Rate FiO2 12/18/19 15:25 Room Air 12/18/19 15:00 97.9 70 18 117/60 (79) 94 97.9 I & O 12/17/19 12/17/19 12/18/19 15:00 23:00 07:00 Intake Total 320 ml 180 ml 300 ml Output Total 800 ml 600 ml Balance -480 ml -420 ml 300 ml Physical Exam General: Alert, Oriented X3, Cooperative, mild distress Heart: Regular rate (SR with chronic LBBB), Other (3/6 systolic murmur to LLS border) Lungs: Clear Abdomen: Normal bowel sounds, Soft, No tenderness, No hepatosplenomegaly, No masses Extremities: No clubbing, No cyanosis, Normal pulses, No tenderness/swelling, Other (2+ edema) Skin: No rashes, No breakdown, No significant lesion Labs Labs: Laboratory Tests Test 8/20/20 03:40 Sodium Level 141 mmol/L (136-145) Potassium Level 4.1 mmol/L (3.5-5.1) Chloride Level 103 mmol/L (98-107) Carbon Dioxide Level 30 mmol/L (21-32) Anion Gap 8 (6-14) Blood Urea Nitrogen 21 mg/dL (7-20) Creatinine 1.1 mg/dL (0.6-1.0) Estimated GFR (Cockcroft-Gault) 59.2 Glucose Level 102 mg/dL (70-99) Calcium Level 8.2 mg/dL (8.5-10.1) Magnesium Level 2.2 mg/dL (1.8-2.4) Triglycerides Level 71 mg/dL (0-150) Cholesterol Level 209 mg/dL (0-200) LDL Cholesterol, Calculated 128 mg/dL (0-100) VLDL Cholesterol, Calculated 14 mg/dL (0-40) Non-HDL Cholesterol Calculated 142 mg/dL (0-129) HDL Cholesterol 67 mg/dL (40-60) Cholesterol/HDL Ratio 3.1 Assessment and Plan Assessmemt and Plan Problems Medical Problems: (1) Person under investigation for COVID-19 Status: Acute (2) Shortness of breath Status: Acute Comment Review of Relevant I have reviewed the following items yvonne (where applicable) has been applied. Medications: Current Medications Medications (Trade) Dose Ordered Sig/Ovi Route PRN Reason Start Time Stop Time Status Last Admin Dose Admin Bumetanide (Bumex) 2 mg DAILY PO 12/18/19 09:00 12/18/19 09:41 Albuterol Sulfate (Ventolin Neb Soln) 2.5 mg PRN Q4HRS PRN NEB SHORTNESS OF BREATH 12/18/19 03:00 12/18/19 03:13 Justicifation of Admission Dx: Justifications for Admission: Justification of Admission Dx: Yes LUCY NEWMAN MD Dec 18, 2019 16:52
--- NOTE | 2019-12-18 16:54 | PDOC3 ---
Discharge Summary Visit Information Date of Admission: Dec 16, 2019 Date of Discharge: Dec 18, 2019 Admitting Diagnosis: Acute systolic CHF Final Diagnosis Problems Medical Problems: (1) Person under investigation for COVID-19 Status: Acute (2) Shortness of breath Status: Acute Brief Hospital Course Allergies Allergies Coded Allergies Type Severity Reaction Last Updated Verified No Known Drug Allergies 07/06/14 No Vital Signs Vital Signs Date Time Temp Pulse Resp B/P (MAP) Pulse Ox O2 Delivery O2 Flow Rate FiO2 12/18/19 15:25 Room Air 12/18/19 15:00 97.9 70 18 117/60 (79) 94 97.9 Lab Results Laboratory Tests Test 12/16/19 20:30 12/16/19 21:51 12/16/19 21:57 12/18/19 03:40 White Blood Count 4.3 x10^3/uL (4.0-11.0) Red Blood Count 3.85 x10^6/uL (3.50-5.40) Hemoglobin 12.0 g/dL (12.0-15.5) Hematocrit 35.7 % (36.0-47.0) Mean Corpuscular Volume 93 fL (79-100) Mean Corpuscular Hemoglobin 31 pg (25-35) Mean Corpuscular Hemoglobin Concent 34 g/dL (31-37) Red Cell Distribution Width 15.8 % (11.5-14.5) Platelet Count 183 x10^3/uL (140-400) Neutrophils (%) (Auto) 66 % (31-73) Lymphocytes (%) (Auto) 24 % (24-48) Monocytes (%) (Auto) 8 % (0-9) Eosinophils (%) (Auto) 1 % (0-3) Basophils (%) (Auto) 1 % (0-3) Neutrophils # (Auto) 2.9 x10^3/uL (1.8-7.7) Lymphocytes # (Auto) 1.0 x10^3/uL (1.0-4.8) Monocytes # (Auto) 0.4 x10^3/uL (0.0-1.1) Eosinophils # (Auto) 0.0 x10^3/uL (0.0-0.7) Basophils # (Auto) 0.1 x10^3/uL (0.0-0.2) Sodium Level 142 mmol/L (136-145) 141 mmol/L (136-145) Potassium Level 4.4 mmol/L (3.5-5.1) 4.1 mmol/L (3.5-5.1) Chloride Level 106 mmol/L (98-107) 103 mmol/L (98-107) Carbon Dioxide Level 30 mmol/L (21-32) 30 mmol/L (21-32) Anion Gap 6 (6-14) 8 (6-14) Blood Urea Nitrogen 15 mg/dL (7-20) 21 mg/dL (7-20) Creatinine 1.0 mg/dL (0.6-1.0) 1.1 mg/dL (0.6-1.0) Estimated GFR (Cockcroft-Gault) 66.1 59.2 BUN/Creatinine Ratio 15 (6-20) Glucose Level 99 mg/dL (70-99) 102 mg/dL (70-99) Calcium Level 8.8 mg/dL (8.5-10.1) 8.2 mg/dL (8.5-10.1) Total Bilirubin 2.0 mg/dL (0.2-1.0) Aspartate Amino Transf (AST/SGOT) 24 U/L (15-37) Alanine Aminotransferase (ALT/SGPT) 41 U/L (14-59) Alkaline Phosphatase 71 U/L (46-116) Troponin I Quantitative < 0.017 ng/mL (0.000-0.055) UN-Bgp-Y-Type Natriuretic Peptide 5080 pg/mL (0-124) Total Protein 6.5 g/dL (6.4-8.2) Albumin 3.4 g/dL (3.4-5.0) Albumin/Globulin Ratio 1.1 (1.0-1.7) Coronavirus (PCR) Not detected (Not Detected) Urine Collection Type Unknown Urine Color Yellow Urine Clarity Clear Urine pH 8.5 (<5.0-8.0) Urine Specific [place] 1.015 (1.000-1.030) Urine Protein 30 mg/dL (NEG-TRACE) Urine Glucose (UA) Negative mg/dL (NEG) Urine Ketones (Stick) Negative mg/dL (NEG) Urine Blood Negative (NEG) Urine Nitrite Negative (NEG) Urine Bilirubin Negative (NEG) Urine Urobilinogen Dipstick 1.0 mg/dL (0.2 mg/dL) Urine Leukocyte Esterase Trace (NEG) Urine RBC 6-10 /HPF (0-2) Urine WBC 1-4 /HPF (0-4) Urine Squamous Epithelial Cells Mod /LPF Urine Bacteria 0 /HPF (0-FEW) Urine Mucus Slight /LPF Magnesium Level 2.2 mg/dL (1.8-2.4) Triglycerides Level 71 mg/dL (0-150) Cholesterol Level 209 mg/dL (0-200) LDL Cholesterol, Calculated 128 mg/dL (0-100) VLDL Cholesterol, Calculated 14 mg/dL (0-40) Non-HDL Cholesterol Calculated 142 mg/dL (0-129) HDL Cholesterol 67 mg/dL (40-60) Cholesterol/HDL Ratio 3.1 Laboratory Tests Test 12/18/19 03:40 Sodium Level 141 mmol/L (136-145) Potassium Level 4.1 mmol/L (3.5-5.1) Chloride Level 103 mmol/L (98-107) Carbon Dioxide Level 30 mmol/L (21-32) Anion Gap 8 (6-14) Blood Urea Nitrogen 21 mg/dL (7-20) Creatinine 1.1 mg/dL (0.6-1.0) Estimated GFR (Cockcroft-Gault) 59.2 Glucose Level 102 mg/dL (70-99) Calcium Level 8.2 mg/dL (8.5-10.1) Magnesium Level 2.2 mg/dL (1.8-2.4) Triglycerides Level 71 mg/dL (0-150) Cholesterol Level 209 mg/dL (0-200) LDL Cholesterol, Calculated 128 mg/dL (0-100) VLDL Cholesterol, Calculated 14 mg/dL (0-40) Non-HDL Cholesterol Calculated 142 mg/dL (0-129) HDL Cholesterol 67 mg/dL (40-60) Cholesterol/HDL Ratio 3.1 Brief Hospital Course Ms Funez is a 69 year old female w/ PMHx Arthritis, Arrhythmia, GOUT, CHRONIC PAIN, RHEUMATOID ARTHRITIS, reduced EF CHF with EF 15-20% s/p Pacemaker, defibrillator who presents with headache, cough, shortness of breath for last 3 days. She notes worsening LE edema and weight gain. Initially required 2L NCO2 to maintain O2 saturations > 88% in ED. After dosing with IV lasix she did feel improved in the ED. She states she has a history of asthma and has a breathing machine at home and she has been doing her breathing treatments every 4 hours and it does help. She denies fever, nausea, abdominal pain, diarrhea, dizziness, syncope, vision changes, numbness or tingling, vomiting, focal weakness, dysuria. Patient currently states that she has no pain at this time but she still short of breath but much better than when she first came into the hospital. She is currently off of oxygen and on room air. The patient's chest x-ray was reviewed and was consistent with congestive heart failure. She has a cough, which has been nonproductive. No fever, no chills. No obvious COVID exposures. No chest pains. She has been stressed out in regards to family dynamics and has lost her car keys that maybe she has thrown it in the trash. Yesterday she started feeling SOA and it got worse at the end of the day despite use of her breathing treatments. She relates she drinks much more water and Sprite at times and has been eating salty and fried foods recently. She does have some PND but notes she was tested negative for SHELTON. Labs with BNP 5080, troponin 0, bilirubin 2, NA 142, K4.4, BUN 15, CR 1. Admitted for further care. Off oxygen after diuresis. She is feeling better. Labs stable. She notes she needs refills on her carvedilol and her Entresto as well as her Cymbalta and would like a home health nurse to help her at home. I d/w her daughter, Jossie via phone Consults: Pulm and cardiology Problem list: A pacemaker is unchanged position. The cardiac silhouette is mild to moderately enlarged. Atherosclerotic calcification thoracic aorta is seen. The thoracic aorta is mildly tortuous. No acute pulmonary infiltrate is seen. No pneumothorax or pleural effusion is noted. Degenerative changes are seen involving the thoracic spine and both shoulders. IMPRESSION: Mild to moderate cardiomegaly. No acute pulmonary infiltrate is seen. ECHO: Left ventricle systolic function is severely impaired The Ejection Fraction is 15-20% Transmitral Doppler flow pattern is Grade II-pseudonormal filling dynamics. There is a pacemaker lead in the right ventricle. Severe mitral regurgitation. Mild tricuspid regurgitation. There is moderate pulmonary hypertension. The PA pressure was estimated at 58 mmHg. There is no evidence of significant pericardial effusion. DATE: 11/08/18 1241 A/P: Acute hypoxic respiratory failure secondary to acute on chronic systolic heart failure. COVID 19 negative. No sign of ILD or rheumatoid lung. Seen by pulm and cardiology, restarted cardiac meds Acute on chronic systolic CHF - IV lasix helping. Cont entresto, statin, Cardiology consulted. Maintain telemetry Nonischemic cardiomyopathy with historic EF 15 to 20% - entresto and coreg refilled. HTN - controlled HLP H/o ventricular tachycardia - on amiodarone AICD insitu - Medtronic - no shocks delivered Diet noncompliance: eats a lot of process food which would contribute to her refractory CHF Sore throat, otalgia - allergies, antihistamines ok, saline rinse Greater than 30 minutes spent on d/c home with home health Discharge Information Condition at Discharge: Improved Follow Up: Weeks Disposition/Orders: D/C to Home w/ HH Scheduled Amiodarone Hcl (Amiodarone Hcl) 200 Mg Tablet, 1 TAB PO DAILY for HEART, #90 Ref 1 (Reported) Entered as Reported by: ANDREW MOSLEY on 11/08/18 0750 Last Action: Reviewed on 12/17/19931 by MARCELA WHITE RN Aspirin (Children's Aspirin) 81 Mg Tab.chew, 81 MG PO DAILY, (Reported) Entered as Reported by: LENORE ACKERMAN on 10/26/13 0522 Last Action: Reviewed on 12/17/19931 by MARCELA WHITE RN Bumetanide (Bumetanide) 2 Mg Tablet, 2 MG PO DAILY for CHF, (Reported) Entered as Reported by: MARCELA WHITE RN on 12/17/19 09 Last Action: Converted on 12/17/19 1434 by MARCELA WHITE RN Carvedilol (Carvedilol ) 6.25 Mg Tablet, 6.25 MG PO BID for CHF for 30 Days, #60 Ref 5 Prescribed by: LUCY NEWMAN MD on 12/18/19 1647 Duloxetine Hcl (Cymbalta) 60 Mg Capsule.dr, 1 CAP PO DAILY for anxiety for 30 Days, #30 Ref 5 Prescribed by: LUCY NEWMAN MD on 12/18/19 1647 Fluticasone Propionate (Flovent 220MCG Hfa) 12 Gm Aer.w.adap, 12 GM INH BID for COPD, (Reported) Entered as Reported by: MARCELA WHITE RN on 12/17/19932 Last Action: Reviewed on 12/17/19932 by MARCELA WHITE RN [place]-3 Fatty Acids/Fish Oil (Fish Oil 1,000 Mg Capsule) 1 Each Capsule, 1 EACH PO DAILY for CHOLESTEROL for 30 Days, #30 Ref 5 Prescribed by: LUCY NEWMAN MD on 12/18/197 Potassium Chloride (Potassium Chloride ) 20 Meq Tablet.er, 20 MEQ PO DAILY for SUPPLEMENT, (Reported) Entered as Reported by: ANDREW MOSLEY on 11/08/18749 Last Action: Reviewed on 12/17/19931 by MARCELA WHITE RN Sacubitril/Valsartan (Entresto 49 mg-51 mg Tablet) 1 Each Tablet, 1 EACH PO BID for chf for 30 Days, #60 Ref 5 Prescribed by: LUCY NEWMAN MD on 12/18/197 Simvastatin (Simvastatin) 10 Mg Tablet, 1 TAB PO QHS for CHOLESTEROL, #30 Ref 5 (Reported) Entered as Reported by: ANDREW MOSLEY on 11/08/18749 Scheduled PRN Albuterol Sulfate (Proair Hfa Inhaler) 8.5 Gm Hfa.aer.ad, 2 PUFF INH PRN Q6HRS PRN for SHORTNESS OF BREATH for 30 Days, Ref 0 Prescribed by: JAZIEL ROMERO on 11/08/18811 Last Action: Reviewed on 12/17/19932 by MARCELA WHITE RN Alprazolam (Alprazolam) 1 Mg Tablet, 1 MG PO TID PRN PRN for ANXIETY / AGITATION, (Reported) Entered as Reported by: MARCELA WHITE RN on 12/17/19932 Last Action: Reviewed on 12/17/19932 by MARCELA WHITE RN Oxycodone/Apap 10-325 (Percocet 10-325 Mg Tablet ) 1 Each Tablet, 1 TAB PO PRN Q6HRS PRN for PAIN for 30 Days, Ref 0 Prescribed by: JAZIEL ROMERO on 7/12/19 0812 Last Action: Reviewed on 12/17/19 0933 by MARCELA WHITE RN Discontinued Medications Ranitidine Hcl (Ranitidine Hcl) 150 Mg Capsule, 150 MG PO BID, (Reported) Entered as Reported by: LENORE ACKERMAN on 10/26/13 0522 Last Action: Discontinued on 12/17/19 0932 by MARCELA WHITE RN Justicifation of Admission Dx: Justifications for Admission: Justification of Admission Dx: Yes LUCY NEWMAN MD Dec 18, 2019 16:54
[2019-12-18 17:16] VITALS: BP 117/60
--- NOTE | 2019-12-18 17:39 | CARD ---
MR#: [id number] Date of Study: 12/18/2019 Ordering Physician: DIEGO SANCHEZ, Referring Physician: DIEGO SANCHEZ, Tech: Aundrea Clark APPROVED REPORT EXAM: Two-dimensional and M-mode echocardiogram with Doppler and color Doppler. Other Information Quality : AverageHR: 75bpm INDICATION Congestive Heart Failure Surgery/Intervention Pacemaker: 2D DIMENSIONS RVDd3.1 (2.9-3.5cm)Left Atrium(2D)4.5 (1.6-4.0cm) IVSd1.0 (0.7-1.1cm)Aortic Root(2D)2.8 (2.0-3.7cm) LVDd6.8 (3.9-5.9cm)LVOT Diameter1.8 (1.8-2.4cm) PWd1.2 (0.7-1.1cm)IVSs5.8 (0.8-1.2cm) Aortic Valve AoV Peak Saad.82.7cm/sAoV VTI12.8cm AO Peak GR.2.7mmHgLVOT Peak Saad.88.0cm/s LVOT VTI 13.14cmAO Mean GR.2mmHg Mitral Valve MV E Gmoajshm991.6cm/sMV E Peak Gr.61mmHg MV DECEL [id number] A Qdvvlflv54.4cm/s MV E Mean Gr.4mmHgMV [id number] E/A Ratio1.9MVA (PHT)3.79cm2 TDI E/Lateral E'20.9E/Medial E'25.0 Pulmonary Valve PV Peak Wzihdhdu24.1cm/sPV Peak Grad.1mmHg Tricuspid Valve TR P. [id number]/sTR Peak Gr.33mmHg Pulmonary Vein S1 Ieztjauh88.7cm/sD2 Ciyhvqyj01.9cm/s PVa [id number] LEFT VENTRICLE The Left Ventricle is moderately dilated. There is borderline to mild concentric left ventricular hyp ertrophy. The systolic function is severely impaired. The Ejection Fraction is estimated at 25%. Ther e is severe global hypokinesis of the left ventricle. Transmitral Doppler flow pattern is Grade II-ps eudonormal filling dynamics. RIGHT VENTRICLE The right ventricle is normal size. There is normal right ventricular wall thickness. The right ventr icular systolic function is normal. There is a device lead in the right ventricle. ATRIA The left atrium is moderately to severely dilated. The right atrium is borderline dilated. The intera trial septum bows toward right atrium consistent with elevated left atrial pressure. AORTIC VALVE The aortic valve is thickened but opens well. Doppler and Color Flow revealed no significant aortic r egurgitation. There is no significant aortic valvular stenosis. Calculated aortic valve area is 2.52 cm2 with maximum pressure gradient of 3 mmHg and mean pressure gradient of 2 mmHg. MITRAL VALVE The mitral valve is moderately thickened. There is no evidence of mitral valve prolapse. There is no mitral valve stenosis with a mean gradient of 2.6 mmHg. Doppler and Color-flow revealed severe mitral regurgitation. TRICUSPID VALVE The tricuspid valve is normal in structure and function. Doppler and Color Flow revealed trace to mil d tricuspid regurgitation with an estimated PAP of 65 mmHg. There is no tricuspid valve stenosis. PULMONIC VALVE The pulmonic valve is not well visualized. Doppler and Color Flow revealed trace pulmonic valvular re gurgitation. GREAT VESSELS The aortic root is normal in size. The IVC is dilated and collapses <50% with inspiration. PERICARDIAL EFFUSION There is no evidence of significant pericardial effusion. Critical Notification Critical Value: No <Conclusion> The Left Ventricle is moderately dilated. The systolic function is severely impaired. The Ejection Fraction is estimated at 25%. There is severe global hypokinesis of the left ventricle. There is borderline to mild concentric left ventricular hypertrophy. There is a device lead in the right ventricle. The left atrium is moderately to severely dilated. Doppler and Color Flow revealed no significant aortic regurgitation. There is no significant aortic valvular stenosis. Doppler and Color-flow revealed moderately severe mitral regurgitation. Doppler and Color Flow revealed trace to mild tricuspid regurgitation with an estimated PAP of 65 mmH g. Signed by : Isaiah Toro MD Electronically Approved : 12/18/2019 17:38:50
--- NOTE | 2019-12-18 17:45 | NUR ---
Pt discharged to home with family. I discussed discharge teaching with daughters Sarika and Pinky as well as the pt. Meds were sent to [facility] pharmacy and family is aware. Questions answered.
== END 2019-12-18 17:45 | disposition home health service (06) | DRG 291 ==
LOC: ER 20:59 → 6 SOUTH 23:23
PROVIDERS: ADMIT Internal Medicine; ATTEND Internal Medicine
DX: I11.0 Hypertensive heart disease with heart failure (principal); J96.01 Acute respiratory failure with hypoxia; I50.23 Acute on chronic systolic (congestive) heart failure; I42.8 Other cardiomyopathies; E78.5 Hyperlipidemia, unspecified; F41.9 Anxiety disorder, unspecified; I27.20 Pulmonary hypertension, unspecified; I34.0 Nonrheumatic mitral (valve) insufficiency; J45.909 Unspecified asthma, uncomplicated; M06.9 Rheumatoid arthritis, unspecified; G89.29 Other chronic pain; Z20.828 Contact with and (suspected) exposure to other viral communicable diseases; Z82.49 Family history of ischemic heart disease and other diseases of the circulatory system; Z91.11 Patient's noncompliance with dietary regimen; Z95.0 Presence of cardiac pacemaker
CPT/HCPCS: 36415; 71045; 80048; 80053; 80061; 81001; 83735; 83880; 84484; 85025; 87086; 93005; 93306; 94640; 94760; 96374; J1940; J2930; 99285-25; G0378; J7613; U0003-CS

== ENCOUNTER 2019-12-21 04:41 | Emergency (ER) | payer MEDICARE ==
[~2019-12-21] VITALS: Ht 170.2 cm; Wt 97.2 kg
[~2019-12-21 04:41] MED LIST changes: +ALPR1TAB6 PO; +BUME2TAB3 PO; +FLUT12AE2 INH
[2019-12-21 05:54] LABS: BASO % 1 % (0-3); EOS # 0.1 x10^3/uL (0.0-0.7); EOS % 1 % (0-3); HEMATOCRIT 42.6 % (36.0-47.0); HEMOGLOBIN 14.6 g/dL (12.0-15.5); LYMPH % 23 % (24-48); MEAN CORPUSCULAR HEMOGLOBIN 32 pg (25-35); MEAN CORPUSCULAR HGB CONC 34 g/dL (31-37); MEAN CORPUSCULAR VOLUME 93 fL (79-100); MONO # 0.5 x10^3/uL (0.0-1.1); MONO % 11 % (0-9); NEUT # 2.7 x10^3/uL (1.8-7.7); NEUT % 65 % (31-73); PLATELET COUNT 197 x10^3/uL (140-400); RED CELL DISTRIBUTION WIDTH 15.6 % (11.5-14.5); WHITE BLOOD COUNT 4.2 x10^3/uL (4.0-11.0)
[2019-12-21 06:05] LABS: ALBUMIN 3.7 g/dL (3.4-5.0); ALBUMIN/GLOBULIN RATIO 0.9 (1.0-1.7); CALCIUM 8.4 mg/dL (8.5-10.1); CREATININE 1.6 mg/dL (0.6-1.0); GFR 38.4; TOTAL BILIRUBIN 2.3 mg/dL (0.2-1.0); TOTAL PROTEIN 7.6 g/dL (6.4-8.2)
[2019-12-21 06:07] LABS: POTASSIUM 2.9 mmol/L (3.5-5.1)
--- NOTE | 2019-12-21 06:20 | PHYS DOC ---
Past Medical History Past Medical History: Arthritis, Arrhythmia, Other Additional Past Medical Histor: GOUT, CHRONIC PAIN, RHEUMATOID ARTHRITIS (PETE CHAWLA MD) Past Surgical History: Pacemaker, Other Additional Past Surgical Histo: defibrillator, hernia repair (EPTE CHAWLA MD) Smoking Status: Never Smoker Alcohol Use: None Drug Use: None (PETE CHAWLA MD) General Adult EDM: Chief Complaint: MULTIPLE COMPLAINTS HPI: HPI: Patient is a 69-year-old female who presents to the emergency room complaining of sore throat, productive cough, intermittent shortness of breath, ear pain. Patient was seen here 1 week ago for the same symptoms. She was discharged home on multiple medications. She had a coronavirus test at that time that was negative. She states that her symptoms have basically stayed the same other than her sputum is looser than it was and that concerned her. She states that she was told by the hospitalist to come back if anything changed. She denies any new fever (PETE CHAWLA MD) Review of Systems: Review of Systems: General: Denies fever, chills, sweats, fatigue Eyes: Denies drainage, blurred vision, eye redness HENT: Reports rhinorrhea, sore throat, earache Respiratory: Reports cough, shortness of breath, wheezing Cardiac: Denies edema, palpitations, chest pain GI: Denies abdominal pain, Nausea, vomiting MSK: Denies back pain, neck pain Skin: Denies rash, jaundice Neuro: Denies headache, dizziness Psychiatric: Denies SI/HI (PETE CHAWLA MD) Heart Score: Risk Factors: Risk Factors: DM, Current or recent (<one month) smoker, HTN, HLP, family history of CAD, obesity. Risk Scores: Score 0 - 3: 2.5% MACE over next 6 weeks - Discharge Home Score 4 - 6: 20.3% MACE over next 6 weeks - Admit for Clinical Observation Score 7 - 10: 72.7% MACE over next 6 weeks - Early Invasive Strategies (PETE CHAWLA MD) Allergies: Allergies: Allergies Coded Allergies Type Severity Reaction Last Updated Verified No Known Drug Allergies 07/06/14 No (PETE CHAWLA MD) Physical Exam: PE: General: Awake, alert, NAD. Well Nourished, well hydrated. Cooperative HEENT: Atraumatic, EOMI, PERRL, airway patent, moist oral mucosa Neck: Supple, trachea midline Respiratory: CTA bilaterally, normal effort, no wheezing/crackles CV: RRR, no murmur, cap refill <2 GI: Soft, nondistended, nontender, no masses MSK: No obvious deformities Skin: Warm, dry, intact Neuro: A&O x3, speech NL, sensory and motor grossly intact, no focal deficits Psych: Normal affect, normal mood, not suicidal or homicidal (PETE CHAWLA MD) PE: Awake and alert, no respiratory distress (CHECO LIRIANO MD) Current Patient Data: Labs: Laboratory Tests Test 12/21/19 05:35 White Blood Count 4.2 x10^3/uL (4.0-11.0) Red Blood Count 4.60 x10^6/uL (3.50-5.40) Hemoglobin 14.6 g/dL (12.0-15.5) Hematocrit 42.6 % (36.0-47.0) Mean Corpuscular Volume 93 fL (79-100) Mean Corpuscular Hemoglobin 32 pg (25-35) Mean Corpuscular Hemoglobin Concent 34 g/dL (31-37) Red Cell Distribution Width 15.6 % (11.5-14.5) H Platelet Count 197 x10^3/uL (140-400) Neutrophils (%) (Auto) 65 % (31-73) Lymphocytes (%) (Auto) 23 % (24-48) L Monocytes (%) (Auto) 11 % (0-9) H Eosinophils (%) (Auto) 1 % (0-3) Basophils (%) (Auto) 1 % (0-3) Neutrophils # (Auto) 2.7 x10^3/uL (1.8-7.7) Lymphocytes # (Auto) 1.0 x10^3/uL (1.0-4.8) Monocytes # (Auto) 0.5 x10^3/uL (0.0-1.1) Eosinophils # (Auto) 0.1 x10^3/uL (0.0-0.7) Basophils # (Auto) 0.0 x10^3/uL (0.0-0.2) Sodium Level 137 mmol/L (136-145) Potassium Level 2.9 mmol/L (3.5-5.1) *L Chloride Level 97 mmol/L (98-107) L Carbon Dioxide Level 29 mmol/L (21-32) Anion Gap 11 (6-14) Blood Urea Nitrogen 26 mg/dL (7-20) H Creatinine 1.6 mg/dL (0.6-1.0) H Estimated GFR (Cockcroft-Gault) 38.4 BUN/Creatinine Ratio 16 (6-20) Glucose Level 109 mg/dL (70-99) H Calcium Level 8.4 mg/dL (8.5-10.1) L Total Bilirubin 2.3 mg/dL (0.2-1.0) H Aspartate Amino Transferase (AST) 18 U/L (15-37) Alanine Aminotransferase (ALT) 25 U/L (14-59) Alkaline Phosphatase 71 U/L (46-116) Lactate Dehydrogenase 253 U/L (81-234) H Creatine Kinase 198 U/L (26-192) H Troponin I Quantitative < 0.017 ng/mL (0.000-0.055) C-Reactive Protein, Quantitative 2.0 mg/L (0-3.3) CN-Xde-D-Type Natriuretic Peptide 2901 pg/mL (0-124) H Total Protein 7.6 g/dL (6.4-8.2) Albumin 3.7 g/dL (3.4-5.0) Albumin/Globulin Ratio 0.9 (1.0-1.7) L Laboratory Tests 12/21/19 05:35 Laboratory Tests 12/21/19 05:35 Vital Signs: Vital Signs Date Time Temp Pulse Resp B/P (MAP) Pulse Ox O2 Delivery O2 Flow Rate FiO2 12/21/19 04:50 97.9 91 20 145/79 (101) 95 Room Air 97.9 (PETE CHAWLA MD) Labs: Laboratory Tests Test 12/21/19 05:35 White Blood Count 4.2 x10^3/uL Red Blood Count 4.60 x10^6/uL Hemoglobin 14.6 g/dL Hematocrit 42.6 % Mean Corpuscular Volume 93 fL Mean Corpuscular Hemoglobin 32 pg Mean Corpuscular Hemoglobin Concent 34 g/dL Red Cell Distribution Width 15.6 % Platelet Count 197 x10^3/uL Neutrophils (%) (Auto) 65 % Lymphocytes (%) (Auto) 23 % Monocytes (%) (Auto) 11 % Eosinophils (%) (Auto) 1 % Basophils (%) (Auto) 1 % Neutrophils # (Auto) 2.7 x10^3/uL Lymphocytes # (Auto) 1.0 x10^3/uL Monocytes # (Auto) 0.5 x10^3/uL Eosinophils # (Auto) 0.1 x10^3/uL Basophils # (Auto) 0.0 x10^3/uL D-Dimer (Delfina) 1.88 ug/mlFEU Sodium Level 137 mmol/L Potassium Level 2.9 mmol/L Chloride Level 97 mmol/L Carbon Dioxide Level 29 mmol/L Anion Gap 11 Blood Urea Nitrogen 26 mg/dL Creatinine 1.6 mg/dL Estimated GFR (Cockcroft-Gault) 38.4 BUN/Creatinine Ratio 16 Glucose Level 109 mg/dL Calcium Level 8.4 mg/dL Total Bilirubin 2.3 mg/dL Aspartate Amino Transf (AST/SGOT) 18 U/L Alanine Aminotransferase (ALT/SGPT) 25 U/L Alkaline Phosphatase 71 U/L Lactate Dehydrogenase 253 U/L Creatine Kinase 198 U/L Troponin I Quantitative < 0.017 ng/mL C-Reactive Protein, Quantitative 2.0 mg/L LE-Fpl-P-Type Natriuretic Peptide 2901 pg/mL Total Protein 7.6 g/dL Albumin 3.7 g/dL Albumin/Globulin Ratio 0.9 Current Medications Medications (Trade) Dose Ordered Sig/Ovi Route PRN Reason Start Time Stop Time Status Last Admin Dose Admin Potassium Chloride (Klor-Con) 40 meq 1X ONCE PO 12/21/19 06:45 12/21/19 06:46 DC 12/21/19 07:17 Vital Signs: Vital Signs Date Time Temp Pulse Resp B/P (MAP) Pulse Ox O2 Delivery O2 Flow Rate FiO2 12/21/19 06:30 78 20 145/77 (99) 94 12/21/19 06:00 78 20 152/80 (104) 97 12/21/19 05:30 80 20 150/80 (103) 94 12/21/19 04:50 97.9 91 20 145/79 (101) 95 Room Air 97.9 (CHECO LIRIANO MD) EKG: EKG: [] (PETE CHAWLA MD) Radiology/Procedures: Radiology/Procedures: [] (PETE CHAWLA MD) Radiology/Procedures: [facility] [address] [place] [address] IMAGING REPORT Signed PATIENT: CY FUNEZ GACCOUNT: [id number] : 1950 LOCATION: ER AGE: 69 SEX: F EXAM STATUS: REG ER ORD. PHYSICIAN: PETE CHAWLA MD REASON: cough, covid? PROCEDURE: CHEST AP ONLY Study: CR CHEST AP ONLY Indication: Cough. Comparison: 12/18/2019 Findings: Redemonstrated enlargement of the cardiomediastinal silhouette. Vascular calcifications at the aortic arch. Left chest wall pacer/AICD. No localized airspace consolidation, layering effusion or pneumothorax has developed in the interim. Impression: No significant interval change from December 18, 2019 with redemonstration of cardiomediastinal silhouette enlargement. Electronically signed by: ADY LEON MD (12/21/2019 7:14 AM) [id number] DICTATED and SIGNED BY: ADY LEON MD DATE: 12/21/19 0714 (CHECO LIRIANO MD) Course & Med Decision Making: Course & Med Decision Making Pertinent Labs and Imaging studies reviewed. (See chart for details) Patient is 69-year-old female presents to the emergency room with productive cough and URI symptoms. A repeat coronavirus test will be done today. Labs and a chest x-ray will be done to rule out any changes in patient's condition. It is likely that her sputum is getting thinner due to improvement in infection. Patient is not requiring any oxygen at this time. She was discussed with oncoming physician who will assume care. (PETE CHAWLA MD) Course & Med Decision Making Received signout from Dr. Chawla regarding Ms. Funez. 69-year-old female was recently admitted for CHF. Patient had a negative COVID-19 test at that time. Patient comes in and complains of a scratchy throat and some ear pain. On my assessment the patient is in no respiratory distress and denies chest pain or shortness of breath. Patient has hypokalemia which is been treated. Pat ient has elevated d-dimer but her creatinine is to 1.6. I discussed with the patient the need for evaluation for pulmonary embolism and that we are limited due to her elevated creatinine and she would need a VQ scan and I would like to admit her to the hospital for that. Patient has full mental capacity and is declining admission for this test. Patient states she would like to go home and follow-up with her doctor. Patient understands the risk of missed pulmonary embolism including . Patient would like some antibiotics for her ear pain. Pharmacy called and says there is an interaction with her amiodarone and azithromycin therefore I changed to doxycycline 100 mg twice daily for a week (CHECO LIRIANO MD) Dragon Disclaimer: Dragon Disclaimer: This electronic medical record was generated, in whole or in part, using a voice recognition dictation system. (PETE CHAWLA MD) Departure Departure Impression: Primary Impression: Shortness of breath Additional Impression: Hypokalemia Disposition: HOME, SELF-CARE Condition: STABLE Referrals: Brendan PORTER MD (PCP) 2-3 days Patient Instructions: Hypokalemia, Upper Respiratory Infection, Adult Additional Instructions: You have been tested for or diagnosed with COVID-19. It is an infection caused by a new type of coronavirus. COVID-19 will cause cold-like or mild flu symptoms in most. It can cause more severe symptoms like problems breathing in some. There is no treatment for COVID-19. The body will clear the infection over time. Self-care will help to ease discomfort. Steps to Take: Self-Care Rest as needed. Healthy habits may help you feel better. Steps include: Choose healthy foods including fruits and vegetables. Drink water throughout the day. Get plenty of sleep each night. If you smoke, try to quit. It may ease breathing. Avoid alcohol. Keep Others Healthy The virus can spread to others. Droplets are released every time you sneeze or cough. The droplets can get into the mouth, nose, or eyes of people near you and lead to infection. To lower the chances of spreading COVID-19 to others: Stay at home until your doctor has said it is safe to leave. If you tested positive this will mean staying isolated until both of the following are true: At least 7 days have passed since the start of illness. You are free of fever for at least 72 hours without the use of medicine. During this time: - Avoid public areas, events, or transportation. Do not return to work or school until your doctor has said it is safe to do so. - Call ahead if you need to go to a medical center. Let them know you may have COVID-19. It will help them guide you where to go. They may also ask you to wear a facemask when you come to the office. - If you call for emergency medical services, let them know you may have COVID- 19. While at home: - Try to avoid close contact with others. Stay about 6 feet away. - If possible, spend most of your time in a separate room from others. - Use a face mask if you will be in close contact with others such as sharing a room or vehicle. - Have someone wipe down common surfaces in the home. Use household earth science technical officer every day on areas like doorknobs, counters, or sinks. - Cough or sneeze into a tissue. Throw the tissue away right after use. If a tissue is not available, cough or sneeze into your elbow. - Wash your hands often. Wash them after sneezing or coughing. Use soap and water and wash for at least 20 seconds. Alcohol based hand ribbon cleaner can be used if soap and water is not available. - Do not prepare food for others. Avoid sharing personal items like forks, spoons, or toothbrushes. - Avoid close contact with pets while you are sick. There is no evidence of the virus passing to pets. This is a safety step until more is known about this virus. Isolation can be frustrating. Social interaction can help. Keep in touch with friends and family through phone and tech options. You can still interact with others in your home, just keep a safe distance of about 6 feet. Follow-up: Your doctors office will check in with you to see if there are any changes in your health. You may be asked to keep track of symptoms to share with them. They will also let you know when you are clear to be in public again. Problems to Look Out For: Contact your doctor if your recovery is not going as you expect. Get emergency care if you have problems such as: - Trouble breathing - Nonstop chest pain or pressure - Changes in awareness, confusion, or problems waking - Lips or face have bluish color - Worsening of symptoms If you think you have an emergency, call for emergency medical services right away. As taken from [facility] EMERGENCY DEPARTMENT GENERAL DISCHARGE INSTRUCTIONS THANK YOU for coming to [facility] Emergency Department (ED) today and trusting us with your care. We trust that you had a positive experience in our Emergency Department. If you wish to speak to the department Management you can contact the supervisor twisting department at . YOUR FOLLOW UP INSTRUCTIONS ARE FOLLOWS: Do you have a private doctor? If you do not have a private doctor, please ask for a resource list of physicians or clinics that may be able to assist you with follow up care. The Emergency Physician has interpreted your x-rays. The X-ray specialist will also review them. If there is a change in the findings you will be notified in 48 hours when at all possible. A lab test or lab culture may have been done, your results will be reviewed and you will be notified if you need a change in treatment. ADDITIONAL INSTRUCTIONS AND INFORMATION Your care today has been supervised by a physician who is specially trained in emergency care. Many problems require more than one evaluation for a complete diagnosis and treatment. We recommend that you schedule your follow up appointment as recommended to ensure complete treatment of your illness or injury. If you are unable to obtain follow up care and continue to have a problem, or if your condition worsens we recommend that you return to the ED. We are not able to safely determine your condition over the phone nor are we able to give sound medical advice over the phone. For these safety reasons, if you call for medical advice we will ask you to come to the ED for further evaluation If you have any questions regarding these discharge instructions please call the ED at . SAFETY INFORMATION In the interest of safety, wellness, and injury prevention; we encourage you to wear your seatbelt, if you smoke; quit smoking, and we encourage your family to use prote ctive helmet for bicycling and other sporting events that present an increased risk for head injury. IF YOUR SYMPTOMS WORSEN OR NEW SYMPTOMS DEVELOP, OR YOU HAVE CONCERNS ABOUT YOUR CONDITION; OR IF YOUR CONDITION WORSENS WHILE YOU ARE WAITING FOR YOUR FOLLOW UP APPOINTMENT; EITHER CONTACT YOUR PRIMARY CARE DOCTOR, THE PHYSICIAN WHOSE NAME AND NUMBER YOU WERE GIVEN, OR RETURN TO THE ED IMMEDIATELY. Scripts Azithromycin (ZITHROMAX) 250 Mg Tablet 1 PKG PO UD, #6 TAB Prov: CHECO LIRIANO MD 12/21/19 Justicifation of Admission Dx: Justifications for Admission: Justification of Admission Dx: Yes (PETE CHAWLA MD) Justification of Admission Dx: N/A (CHECO LIRIANO MD) PETE CHAWLA MD Dec 21, 2019 06:20 CHECO LIRIANO MD Dec 21, 2019 06:28
[2019-12-21] MEDS ORDERED: POTASSIUM CHLORIDE 20 MEQ TABLET.ER. PO ONE (06:45)
--- NOTE | 2019-12-21 07:17 | RAD ---
Study: CR CHEST AP ONLY Indication: Cough. Comparison: 12/18/2019 Findings: Redemonstrated enlargement of the cardiomediastinal silhouette. Vascular calcifications at the aortic arch. Left chest wall pacer/AICD. No localized airspace consolidation, layering effusion or pneumothorax has developed in the interim. Impression: No significant interval change from December 18, 2019 with redemonstration of cardiomediastinal silhouette enlargement. Electronically signed by: ADY LEON MD (12/21/2019 7:14 AM) [id number]
[2019-12-21 07:24] VITALS: BP 135/81
[2019-12-21] MEDS ORDERED: AZIT250T PO (07:47)
--- NOTE | 2019-12-22 07:43 | EKG ---
[facility] [address] [place] [address] Test Date: 2019-12-21 Test Time: 05:28:02 Pat Name: CY HENDERSON Department: Room: Gender: F [employer]: : 1950 Requested By: PETE FIELDS Order Number: [id number] Reading MD: Measurements Intervals [place] Rate: 79 P: 22 VA: 190 QRS: -43 QRSD: 128 T: 84 QT: 446 QTc: 513 Interpretive Statements SINUS RHYTHM LEFT ATRIAL ABNORMALITY ABNORMAL LEFT AXIS DEVIATION LEFT BUNDLE BRANCH BLOCK ABNORMAL ECG RI6.02 No previous ECG available for comparison
--- NOTE | 2019-12-23 09:30 | NUR ---
IP: Attempted to contact pt concerning COVID results. Left voicemail to return my call.
== END 2019-12-21 08:00 | disposition home or self-care (01) ==
LOC: ER 04:41
DX: R06.02 Shortness of breath (principal); Z20.828 Contact with and (suspected) exposure to other viral communicable diseases; E87.6 Hypokalemia; J02.9 Acute pharyngitis, unspecified; R05 Cough; G89.29 Other chronic pain; M10.9 Gout, unspecified; M06.9 Rheumatoid arthritis, unspecified; Z95.0 Presence of cardiac pacemaker
CPT/HCPCS: 36415; 71045; 80053; 82550; 83615; 83880; 84484; 85025; 85379; 86140; 93005; 99285; U0003

== ENCOUNTER → 2020-04-15 | Outpatient (CLI) | payer MEDICARE, OTHER ==
[~2020-04-15] MED LIST changes: -AMIO200T4 PO; +AMIO200T6 PO; +AZIT250T PO
--- NOTE | 2020-04-15 14:02 | KCIC ---
EXAM: XR CERVICAL SPINE 2-3V, XR CHEST 2V, XR SHOULDER_LEFT 2+ VIEWS 04/15/2020 10:50 AM CLINICAL INDICATION: Nonischemic cardiomyopathy, bilateral upper extremity numbness and neck pain. COMPARISON: Chest radiograph 12/21/2019 TECHNIQUE: 2 views of the chest, 4 views of the cervical spine, 3 views of the left shoulder. FINDINGS: CHEST: A pacemaker/AICD is unchanged. Cardiomegaly is unchanged. There are calcifications in the thor acic aorta. Lungs are well-expanded and clear. No pleural effusion or pneumothorax. No acute osseous abnormality. CERVICAL SPINE: Cervical spine is viewed through C6-C7 on lateral projection. No acute fracture of th e visualized cervical spine. There is severe disc space narrowing with endplate sclerosis and small o steophytes from C3-C4 through C6-C7. There is straightening of lordosis. No listhesis. There is multi level facet arthrosis. LEFT SHOULDER: No acute fracture. Alignment is normal. There is a small humeral head osteophyte. Mild acromial clavicular degenerative joint disease. The subacromial space is maintained. No soft tissue calcification. A pacemaker/AICD generator is in the left upper quadrant. IMPRESSION: 1. Unchanged cardiomegaly. No acute abnormality in the chest. 2. Multilevel severe degenerative disc disease in the cervical spine. 3. Mild left glenohumeral and acromioclavicular degenerative joint disease. Electronically signed by: Jossie Lui MD (04/15/2020 1:59 PM) [id number]
== END ==
LOC: KCIC 10:46
PROVIDERS: ATTEND Family Medicine
DX: M19.012 Primary osteoarthritis, left shoulder (principal); M47.812 Spondylosis without myelopathy or radiculopathy, cervical region; I42.9 Cardiomyopathy, unspecified; I70.0 Atherosclerosis of aorta; M25.712 Osteophyte, left shoulder; Z95.0 Presence of cardiac pacemaker
CPT/HCPCS: 71046; 72040; 73030

== ENCOUNTER → 2020-04-27 | Outpatient (CLI) | payer MEDICARE ==
[~2020-04-27] MED LIST changes: +REGADENOSON 0.4 MG/5 ML DISP.SYRIN. IV ONE
--- NOTE | 2020-04-27 14:22 | RAD ---
MR#: [id number] Date of Study: 04/27/2020 Ordering Physician: PERRY STINSON, Referring Physician: MIKE CRAWFORD Tech: RT Allison Lind) (N) APPROVED REPORT Test Type: Pharmacological Stress Nurse/Tech: JASMINA CLEMENTE Test Indications: CHF Cardiac History: CHF, PPM/AICD- SEE EMR Medications: SEE EMR Medical History: SEE EMR Resting ECG: A-PACED/BBB Resting Heart Rate: 70 bpm Resting Blood Pressure: 121/60mmHg Pretest Chest Pain: No chest pain Nurse/Tech Notes VSS, LUNGS CTA, PPM NOTED, DENIED CP OR SOA. Consent: The procedure was explained to the patient in lay terms. Informed consent was witnessed. Raul eout was entered into [employer]. History and Stress Test performed by RT Allison Quiles) (N) Pharm. Details Pharmacologic stress testing was performed using 0.4mg per 5ml of regadenoson given intravenously ove r 7-10 seconds. Stress Symptoms PT TOLERATED THE TEST WELL, HER ONLY COMPLAINT WAS "FEELING HOT" FOR A BRIEF MOMENT, RESOLVED QUICKLY . DENIED CP OR SOA. VSS. NO COMPLAINTS. POST EXERCISE Reason for Termination: Infusion complete Max HR: 93 bpm Max Blood Pressure: 132/59mmHg Blood Pressure response to exercise: Normal blood pressure response during stress. Heart Rate response to exercise: WNL Chest Pain: No. Arrhythmia: No. NO SIGNIFICANT CHANGES FROM BASELINE EKG. ST Change: No. INTERPRETATION Stress EKG Conclusion: Baseline EKG showed paced rhythm. Nondiagnostic changes at peak stress. No a rrhythmias. Imaging Protocol IMAGE PROTOCOL: Rest Tc-99m/stress Tc-99m 1 day Rest: Stress: Viability: Radiopharm.Tc99m [id number] Sestamibi Dose10.5mCi 30.6mCi Duration 15min. 15min. Img Date 04/27/2020 04/27/2020 Inj-Img [id number]. 60min. Rest Admin Site:IV - Left AntecubitalAdministrator:RT Allison Lind)(N) Stress Admin Site: IV - Left AntecubitalAdministrator: Brianne Johnson RT (R)(N) STRESS DATA End Diast. Vol.363.0mlLVEDV index MUS902.0ml End Syst. Vol.279.0mlLVESV index HHM081.0ml Myocardial Ihcz868.0gEject. Elglipfh47.0% Stress Scores Regional WT2.00Summed WT32.00 Regional WM0.00Summed WM32.00 LV Perfusion Scintigraphic images were technically difficult but did not show any obvious fixed or reversible defe cts. Wall Motion Severe left ventricular systolic dysfunction with ejection fraction calculated at 23%. LV Perf. Quant 17 Seg. SSS21.00 17 Seg. SRS13.00 17 Seg. SDS10.00 Stress Defect Extent (% LAD)48.10Rest Defect Extent (% LAD)11.90Rev. Defect Extent (% LAD)35.60 Stress Defect Extent (% LCX) 33.80Rest Defect Extent (% LCX)11.30Rev. Defect Extent (% LCX)28.80 Stress Defect Extent (% RCA)35.60Rest Defect Extent (% RCA)57.80Rev. Defect Extent (% RCA)0.00 Stress Defect Extent (% ARRON)38.90Rest Defect Extent (% ARRON)26.50Rev. Defect Extent (% ARRON)20.20 Conclusion 1. Regadenoson cardioisotope stress test was technically difficult but did not show any evidence of i schemia or infarct. 2. Severe left ventricular systolic dysfunction with ejection fraction calculated at 23%. 3. Intermediate risk for cardiac events based on diminished LV function. Signed by : Perry Stinson, Electronically Approved : 04/27/2020 14:21:41
== END ==
LOC: NM 09:08
PROVIDERS: ATTEND Internal Medicine Cardiovascular Disease
DX: I50.9 Heart failure, unspecified (principal)
CPT/HCPCS: 78452; 93017; A9500; J2785

== ENCOUNTER → 2020-11-17 | Outpatient (CLI) | payer MEDICARE ==
[~2020-11-17] MED LIST changes: -CLIN150C14 PO; +CLIN150C15 PO; -REGADENOSON 0.4 MG/5 ML DISP.SYRIN. IV ONE
--- NOTE | 2020-11-17 16:46 | CARD ---
MR#: [id number] Date of Study: 11/17/2020 Ordering Physician: PERRY STINSON, Referring Physician: PERRY STINSON, Tech: Aundrea Clark [facility] APPROVED REPORT EXAM: Two-dimensional and M-mode echocardiogram with Doppler and color Doppler. Other Information HR: 70bpm INDICATION Congestive Heart Failure Surgery/Intervention Pacemaker: 2D DIMENSIONS RVDd3.8 (2.9-3.5cm)Left Atrium(2D)5.3 (1.6-4.0cm) IVSd0.7 (0.7-1.1cm)Aortic Root(2D)2.4 (2.0-3.7cm) LVDd7.4 (3.9-5.9cm)LVOT Diameter1.9 (1.8-2.4cm) PWd1.0 (0.7-1.1cm)LVDs6.0 (2.5-4.0cm) FS (%) 18.5 %SV107.6 ml Aortic Valve AoV Peak Saad.102.1cm/sAoV VTI21.3cm AO Peak GR.4.2mmHgLVOT Peak Saad.72.4cm/s LVOT VTI 15.03cmAO Mean GR.2mmHg VIDA (VMAX)1.25rm6HAE (VTI)2.04cm2 Mitral Valve MV E Hakhiatq135.2cm/sMV E Peak Gr.75mmHg MV DECEL [id number] A Kyylcmjp08.1cm/s MV E Mean Gr.4mmHgMV SWP38tq E/A Ratio2.1MVA (PHT)4.28cm2 TDI E/Lateral E'20.1E/Medial E'20.1 Pulmonary Valve PV Peak Phjxzgpb08.4cm/sPV Peak Grad.2mmHg Tricuspid Valve TR P. Eofcepdh663yw/sRAP [id number] TR Peak Gr.80oyHeBGCS50hzAp LEFT VENTRICLE The Left Ventricle is moderately dilated. There is normal left ventricular wall thickness. The systol ic function is severely impaired. The Ejection Fraction is 20-25%. There is severe global hypokinesis of the left ventricle. Tissue Doppler imaging reveals moderate left ventricular diastolic dysfunctio n. RIGHT VENTRICLE The right ventricle is mildly to moderately dilated. There is normal right ventricular wall thickness . Systolic function is borderline reduced. There is a device lead in the right ventricle. ATRIA The left atrium is moderately dilated. The right atrium is moderately dilated. The interatrial septum is intact with no evidence for an atrial septal defect or patent foramen ovale as noted on 2-D or Do ppler imaging. AORTIC VALVE The aortic valve is normal in structure and function. Doppler and Color Flow revealed trace aortic re gurgitation. There is no significant aortic valvular stenosis. Calculated aortic valve area is 2.13 c m2 with maximum pressure gradient of 5 mmHg and mean pressure gradient of 2 mmHg. MITRAL VALVE The mitral valve is normal in structure and function. There is no evidence of mitral valve prolapse. There is no mitral valve stenosis. The mitral regurgitant jet is eccentrically directed. Doppler and Color-flow revealed moderate mitral regurgitation. TRICUSPID VALVE The tricuspid valve is normal in structure and function. Doppler and Color Flow revealed moderately s evere tricuspid regurgitation with an estimated PAP of > 65 mmHg. There is no tricuspid valve stenosi s. PULMONIC VALVE The pulmonic valve is not well visualized. Doppler and Color Flow revealed trace pulmonic valvular re gurgitation. GREAT VESSELS The aortic root is normal in size. The IVC is dilated and collapses <50% with inspiration. PERICARDIAL EFFUSION There is no evidence of significant pericardial effusion. Critical Notification Critical Value: No <Conclusion> The Left Ventricle is moderately dilated. The systolic function is severely impaired. The Ejection Fraction is 20-25%. There is severe global hypokinesis of the left ventricle. There is a device lead in the right ventricle. Doppler and Color Flow revealed trace aortic regurgitation. There is no significant aortic valvular stenosis. The mitral regurgitant jet is eccentrically directed. Doppler and Color-flow revealed moderate mitral regurgitation. Doppler and Color Flow revealed moderately severe tricuspid regurgitation with an estimated PAP of > 65 mmHg. Signed by : Isaiah Toro MD Electronically Approved : 11/17/2020 16:45:30
== END ==
LOC: ECHO 13:49
PROVIDERS: ATTEND Internal Medicine Cardiovascular Disease
DX: I08.1 Rheumatic disorders of both mitral and tricuspid valves (principal); I50.22 Chronic systolic (congestive) heart failure
CPT/HCPCS: 93306

== ENCOUNTER → 2021-08-22 | Outpatient (CLI) | payer MEDICARE ==
[~2021-08-22] MED LIST changes: +AMIO200T53 PO; -AMIO200T6 PO; -CLIN150C15 PO; +CLIN150C16 PO; -DULO60CA6 PO; +DULO60CA7 PO; -LISI2.5T PO; +LISI2.5T12 PO
--- NOTE | 2021-08-22 17:19 | RAD ---
MR#: [id number] Date of Study: 08/22/2021 Ordering Physician: PERRY STINSON, Referring Physician: PERRY STINSON, Tech: Aundrea Hatfield RDMS, RVT, RTR APPROVED REPORT Patient Location : OUT-PATIENT Indications Venous Insufficiency Findings Grayscale images of superficial veins and saphenofemoral junctions bilateral lower extremities were g rossly unremarkable without any evidence of thrombus. 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 Spectral waveform and color duplex analysis did not show any significant venous insufficiency involving bilateral greater or lesser saphenous veins. Critical Notification Critical Value: No <Conclusion> Bilateral lower extremity venous reflux study did not show any significant venous insufficiency invol ving greater or lesser saphenous veins. 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 Signed by : Perry Stinson, Electronically Approved : 08/22/2021 17:18:39
== END ==
LOC: US 12:43
PROVIDERS: ATTEND Internal Medicine Cardiovascular Disease
DX: I50.22 Chronic systolic (congestive) heart failure (principal); I87.2 Venous insufficiency (chronic) (peripheral)
CPT/HCPCS: 93970